=== PATIENT | male | born 1945 | race Caucasian/White ===

== ENCOUNTER 2018-03-25 09:20 | Emergency (ER) | payer OTHER, SELFPAY ==
[2018-03-25 09:22] VITALS: BP 158/79; PULSE 69; RESP 15; TEMP 36.2; O2SAT 95; BMI 29.5
--- NOTE | 2018-03-25 09:33 | CT_ITS ---
STUDY: CT ABDOMEN AND PELVIS WITHOUT CONTRAST REASON FOR EXAM: Male, 73 years old. Right flank pain with history of renal stones RADIATION DOSAGE (If Supplied By Facility): CTDIvol = ( 7.12 ) mGy, DLP = ( 325.70 ) mGycm TECHNIQUE: Transaxial images were obtained from the dome of the diaphragm to the symphysis pubis without oral contrast, and without intravenous contrast. Sagittal and coronal images were reconstructed. Individualized dose optimization techniques were used for this CT. COMPARISON: None. FINDINGS: The visualized lung bases are unremarkable. The visualized portions of the heart are within normal limits. Normal liver. Normal gallbladder and extrahepatic biliary system. Normal spleen. Normal pancreas. Normal bilateral adrenal glands. Both kidneys are prominent in size with either moderate bilateral hydronephrosis or parapelvic renal cysts. Ureters are NOT seen, however. There are calcifications of the left kidney measuring up to 5 mm. There appears to be a cystic lesion of the posterior right kidney on axial image 53 measuring 1.4 cm. Normal visualized stomach. Normal small intestine. Normal colon. There is non-visualization of the appendix. There is diffuse atherosclerotic calcification of the abdominal aorta, without a demonstrated aneurysm. Normal inferior vena cava. Normal retroperitoneum. There is diffuse increased attenuation of the central mesentery with mildly prominent lymph nodes and coarse, chunky calcifications in the central mesentery (image 80). A dominant tang masses NOT seen, however. Urinary bladder is not well-distended but there is circumferential diffuse thickening of the urinary bladder wall. Prostate is moderately enlarged. Normal abdominal wall. There are diffuse degenerative changes of the visualized lumbar spine. Mild arthrosis of the bilateral sacroiliac joints. CT/Abdomen/Pelvis without Cont IMPRESSION: 1. Bilateral hydronephrosis versus parapelvic renal cysts. No hydroureter. Renal ultrasound may assist in differentiating. 2. Left nephrolithiasis. 3. Circumferential wall thickening of the urinary bladder could represent cystitis, muscular hyperplasia or neoplasm. 4. Prostatomegaly. 5. Courtney mesentery with prominent mesenteric lymph nodes and scattered calcifications. Broad differential diagnosis with differential considerations including sequela of prior infection (peritonitis/pancreatitis/colitis/enteritis), sclerosing mesenteritis (favored), carcinoid tumor (atypical location), treated lymphoma. Unlikely to represent etiology of presenting symptoms. Electronically Signed: Pascual Harden MD at 10:13 EST , Service support ,
--- NOTE | 2018-03-25 09:35 | ED.VISSUMM ---
- ER Visit Summary Date of Service: 03/25/18 Chief Complaint: Right flank pain History of Present Illness: The patient is a 73 M presenting with right flank pain. Patient states this started approximately 1 hour ago. Pain is in the right flank and radiates to the right lower quadrant. Feels similar to his previous kidney stones. He has nausea with no vomiting. Denies fever. He has history of appendectomy. Denies other complaints. Physical Examination: Vitals are stable. Patient is afebrile. Alert no acute distress. HEENT exam is unremarkable. Neck is supple. Lungs are clear and equal bilaterally. Heart is regular rate and rhythm. Abdomen is soft mild right lower quadrant tenderness with no rebound or guarding Back: Right CVA tenderness Extremities are unremarkable. Skin is warm and dry. Remainder of exam is unremarkable. Emergency Department Course and Treatment: Patient given IV fluids, morphine, Zofran. CBC, chemistries unremarkable other than BUN 27. Urinalysis shows over [address] flank shows bilateral hydronephrosis versus parapelvic renal cysts. No hydroureter. Left nephrolithiasis. Circumferential wall thickening of the urinary bladder could represent cystitis, muscular hyperplasia or neoplasm. Prostatomegaly. Courtney mesentery with prominent mesenteric lymph nodes and scattered calcifications. Broad differential diagnosis with differential considerations including sequela of prior infection (peritonitis/pancreatitis/colitis/enteritis), sclerosing mesenteritis (favored), carcinoid tumor (atypical location), treated lymphoma. Unlikely to represent etiology of presenting symptoms. On further review, there are 1-2 calculi in the distal right ureter. The calculi measure up to 3 mm. Findings were discussed with the patient. He is currently pain-free. He will follow-up with urology and primary care physician Dr. Villatoro associate professor of economics for no doc. Advised return to ED for worsening complaints. Disposition: Discharge home Impression: Urolithiasis This note was generated with [employer] dictation software. It may contain incorrect words, spelling, and punctuation that were not noted in review of the chart prior to signing ED Disposition - Plan for ED Patient: Chief Complaint: Flank Pain Instructions: ED Stone Renal W Colic Prescriptions: Oxycodone HCl/Acetaminophen [Percocet 5/325] 1 tablet PO Q6H PRN PRN 3 Days #12 tablet PRN Reason: Pain Ondansetron [Zofran Odt] 4 mg PO Q8H PRN PRN #10 tablet PRN Reason: Nausea Referrals: Preston Villatoro III, MD [STAFF PHYSICIAN] - Atif Parks MD [STAFF PHYSICIAN] - An Fuller DO [STAFF PHYSICIAN] -
[2018-03-25] MEDS: Morphine 4 MG/ML Syringe IV ×2 (09:42→11:18)
[2018-03-25] MEDS: 0.9% Normal Saline 1,000 ML 250 ML IV (09:42)
[2018-03-25] MEDS: Ondansetron 4 MG/2 ML Vial IV (09:43)
[2018-03-25 09:45] LABS: Absolute Lymphocyte Count 1.28 X10^3/ul (0.83-4.51); Absolute Neutrophil Count 3.6 X10^3/uL (2.0-7.7); Basophil# 0.02 X10^3/uL; Basophil% 0.4 % (0-1); Eosinophil# 0.13 X10^3/uL; Eosinophils% 2.3 % (0-5); Hematocrit 41.2 % (40-54); Hemoglobin 14.4 g/dl (13.0-16.5); Lymphocyte # 1.28 X10^3/ul (4.0); Lymphocyte % 23.1 % (19-41); Mean Corpuscular Hgb 34.4 pg (27.0-32.0); Mean Corpuscular Volume 98.6 fL (80-94); Mean Platelet Vol. 9.2 fl (6.2-12.0); Monocyte# 0.53 X10^3/uL; Monocyte% 9.5 % (0-10); Neutrophil # 3.58 X10^3/uL (2.7-7.7); Neutrophil % 64.5 % (47-70); POSITIVE COUNT NO; POSITIVE DIFFERENTIAL NO; POSITIVE MORPHOLOGY NO; Platelet Count 252 K/mm3 (150-450); RBC Distribution Width SD 43.6 fl (35.1-43.9); Red Blood Count 4.18 M/mm3 (4.6-6.2); White Blood Count 5.6 K/mm3 (4.4-11.0)
[2018-03-25 09:53] LABS: Bacteria 0 SEEN /hpf (None Seen); Squamous Epithelial Cells - UA 0 SEEN /hpf (0-5); White Blood Cells 0 SEEN /hpf (0-5)
[2018-03-25 09:55] LABS: Color, Urine Yellow (Yellow); Glucose, Dipstick Normal (Normal); Ketone-Dipstick Negative (Negative); Leukocyte Esterase-Dipstick 25 /ul (Negative); Nitrite-Dipstick Negative (Negative); Occult Blood-Urine 250 /ul (Negative); Protein-Dipstick 30 mg/dl (Negative); Specific Gravity, Urine 1.025 (1.002-1.030); Urine Bilirubin Dipstick Negative (Negative); Urine Clarity Clear (Clear); Urine Urobilinogen Normal (Normal)
[2018-03-25 10:02] LABS: Red Blood Cells-Urine > 100 SEEN /hpf (0-5)
[2018-03-25 10:02] LABS: Anion Gap 7 (5-15); BUN 27 mg/dL (7-18); BUN/Creat Ratio 21.4 RATIO (10-20); Calcium,Total 8.5 mg/dL (8.5-10.1); Chloride 111 mmol/L (98-107); Creatinine, Serum 1.26 mg/dL (0.70-1.30); EST Glomerular Filtration Rate 60 mL/min (>60); Est Glom Filt Rate - Afr Amer 72 mL/min (>60); Estimated Creatinine Clearance 48.82 ml/min; Glucose 93 mg/dL (74-106); Sodium Level 144 mmol/L (136-145)
[2018-03-25 10:03] LABS: Mucous, Urine 1+ /hpf (<or=2+)
[2018-03-25 11:22] VITALS: BP 128/63; PULSE 89; RESP 22; O2SAT 99
--- NOTE | 2018-03-25 12:11 | ED.DEP ---
ED Disposition - Plan for ED Patient: Chief Complaint: Flank Pain Instructions: ED Stone Renal W Colic Referrals: Atif Parks MD [STAFF PHYSICIAN] - An Fuller DO [STAFF PHYSICIAN] - Preston Villatoro III, MD [STAFF PHYSICIAN] -
--- NOTE | 2018-03-25 12:17 | ED.DEP ---
ED Disposition - Plan for ED Patient: Chief Complaint: Flank Pain Instructions: ED Stone Renal W Colic Referrals: Preston Villatoro III, MD [STAFF PHYSICIAN] - Atif Parks MD [STAFF PHYSICIAN] - An Fuller DO [STAFF PHYSICIAN] -
--- NOTE | 2018-03-25 12:21 | ED.DEP ---
ED Disposition - Plan for ED Patient: Chief Complaint: Flank Pain Instructions: ED Stone Renal W Colic Prescriptions: Oxycodone HCl/Acetaminophen [Percocet 5/325] 1 tablet PO Q6H PRN PRN 3 Days #12 tablet PRN Reason: Pain Ondansetron [Zofran Odt] 4 mg PO Q8H PRN PRN #10 tablet PRN Reason: Nausea Referrals: Preston Villatoro III, MD [STAFF PHYSICIAN] - Atif Parks MD [STAFF PHYSICIAN] - An Fuller DO [STAFF PHYSICIAN] -
[2018-03-25 12:44] VITALS: BP 126/75; PULSE 71; RESP 18; O2SAT 99
== END 2018-03-25 12:45 | disposition home or self-care (01) ==
LOC: ED 10:31
PROVIDERS: Emergency Provider Emergency Medicine
DX: N20.2 Calculus of kidney with calculus of ureter (principal); N28.89 Other specified disorders of kidney and ureter; N40.0 Benign prostatic hyperplasia without lower urinary tract symptoms; Z87.442 Personal history of urinary calculi
CPT/HCPCS: 74176; 80048; 81001; 85025; 96361; 96374; 96375; 99283; J7030; A4216; J2405

== ENCOUNTER → 2018-05-21 10:36 | Outpatient (CLI) | payer OTHER, SELFPAY ==
--- NOTE | 2018-05-21 10:45 | RAD_ITS ---
STUDY: X-RAY - ABDOMEN/PELVIS REASON FOR EXAM: Male, 73 years old. Right-sided flank pain and history of stones TECHNIQUE: Single AP view of the abdomen / pelvis. COMPARISON: CT scan abdomen and pelvis March 25, 2018 FINDINGS: Normal visualized lung bases. There is an unremarkable bowel gas pattern. There is no demonstrated free abdominal air. There is a calcification in the left upper quadrant overlying the mid kidney measuring 4.9 mm. There is one measuring 2.7 mm. The right kidney is obscured. The liver and spleen are out of the [id number] on this study. Normal soft tissue structures. There are diffuse degenerative changes of the visualized lumbar spine. RAD/Abdomen Single View IMPRESSION: Left-sided renal stones. Right kidney is not well-visualized. There is no visualized stones in the right upper quadrant allowing for technique. There is still a stone in the right side of the pelvis which may represent persistent or residual ureteral stone. Recommend follow-up CT scan of the abdomen and pelvis renal colic protocol when appropriate. Electronically Signed: Mariann Maldonado MD at 2:16 EST Tel , Service support ,
== END ==
PROVIDERS: Referring Provider Urology; Visit Provider Urology
DX: R10.9 Unspecified abdominal pain (principal)
CPT/HCPCS: 74018

== ENCOUNTER 2018-05-30 07:24 | Day surgery (SDC) | payer OTHER, SELFPAY ==
--- NOTE | 2018-05-29 11:58 | HP.PCM_ITS ---
History and Physical Date of Admission: 05/30/18 I have pain in the flank. HPI: RADHA RIVERA is a 73 year-old male patient who is here for flank pain. The problem is on the right side. His pain started about 4 days. The pain is sharp. The intensity of his pain is rated as a 5. The pain is intermittent. The pain does radiate. Nothing seems to make the pain better. Nothing causes the pain to become worse. has pain comes and goes. CC/HPI: 73-year-old male who is been having flank pain often on on the right side since March. He had a CAT scan in March the demonstrated a 3 mm stone in the right ureter vesicle junction. Has never seen the stone or pass a stone. Still having pain in the right side often on pressure about five at a 10. Today we did a KUB which clearly demonstrate the stone still in the distal right ureter. ALLERGIES: None MEDICATIONS: None PSH: None NON- PSH: Appendectomy PMH: Other hydronephrosis Personal history of urinary calculi NON- PMH: None Immunizations: None FAMILY HISTORY: Heart Disease - Runs in Family SOCIAL HISTORY: Marital Status: Preferred Language: Luxembourgish; Race: White Current Smoking Status: Patient has never smoked. Tobacco Use Assessment Completed: Used Tobacco in last 30 days? Smoking cessation counseling was provided. Does not use smokeless tobacco. Social Drinker. Has not had a blood transfusion. REVIEW OF SYSTEMS: Constitutional: Patient denies fever, chills, weight loss, and weight gain. Eyes: Patient denies blurry vision, cataracts, and glaucoma. Ears, Nose, Mouth, Throat: Patient denies hearing loss, sinus infections, and sleep apnea. Cardiovascular: Patient denies chest pains, swollen ankles, irregular he artbeat, and pacemaker/defib. Respiratory: Patient denies shortness of breath, wheezing, oxygen, and cpap machine. Gastrointestinal: Patient denies abdominal pain, diarrhea, constipation, nausea, and vomiting. Genitourinary: Patient reports history of stones and get up at night to void. Patient denies leakage of urine, bedwetting, blood in the urine, weak stream/scanty, frequent uti's, urinary retention, difficulty starting stream, painful urination, and frequent urination. Musculoskeletal: Patient denies sore muscles, back pain, and gout. Integumentary/Skin: Patient denies rash, skin cancer, and chronic itching. Neurological: Patient denies falling/unsteady, paralysis, and stroke/tia. Hematologic/Lymphatic: Patient denies abnormal bleeding, blood transfusion, swollen lymph nodes, deep venous thrombosis, and pulmonary embolism. VITAL SIGNS: 05/21/2018 10:22 AM Weight 185 lb / 83.91 kg Height 185 in / 469.9 cm BP 128/66 mmHg BMI 3.8 kg/m? - BMI Counseling was provided. MULTI-SYSTEM PHYSICAL EXAMINATION: Constitutional: Well-nourished. No physical deformities. Normally developed. Good grooming. Neck: Neck symmetrical, not swollen. Normal tracheal position. Respiratory: No labored breathing, no use of accessory muscles. Cardiovascular: Normal temperature, normal extremity pulses, no swelling, no varicosities. Lymphatic: No enlargement of neck, axillae, groin. Skin: No paleness, no jaundice, no cyanosis. No lesion, no ulcer, no rash. Neurologic / Psychiatric: Oriented to time, oriented to place, oriented to person. No depression, no anxiety, no agitation. Gastrointestinal: No mass, no tenderness, no rigidity, non obese abdomen. Eyes: Normal conjunctivae. Normal eyelids. Ears, Nose, Mouth, and Throat: Left ear no scars, no lesions, no masses. Right ear no scars, no lesions, no masses. Nose no scars, no lesions, no masses. Normal hearing. Normal lips. Musculoskeletal: Normal gait and station of head and neck. PAST DATA REVIEWED: Source Of History: Patient Lab Test Review: CBC Records Review: Previous Doctor Records, Previous Patient Records X-Ray Review: KUB: Reviewed Films. Reviewed Report. Discussed With Patient. C.T. Abdomen/Pelvis: Reviewed Films. Reviewed Report. Discussed With Patient. PROCEDURES: Urinalysis - 73585 Dipstick Dipstick Cont'd Specimen: Voided Blood: Neg Appearance: Clear pH: 5.0 Color: Yellow Protein: Neg Glucose: Normal Urobilinogen: Neg Bilirubin: Neg Nitrites: Neg Ketones: Neg Leukocyte Esterase: Neg ASSESSMENT: ICD-10 Details 1 : Calculus of ureter - N20.1 Right 2 Other hydronephrosis - N13.39 3 Generalized abdominal pain - R10.84 PLAN: Schedule Procedure: Unspecified Date - Cysto Uretero Lithotripsy - 68746, right Document Letter(s): Created for Patient: Clinical Summary The risks, benefits, and some of the possible complications of the proposed procedure were discussed with the patient at length and in detail including the possibility of bladder injury, urethral injury, ureteral injury, ureteral biopsy, ureteral lesion resection, open nephrectomy, a bladder biopsy, retrograde pyelograms, resection of a bladder lesion, dilation of the urethra, a postoperative catheter, placement of a ureteral stent, and others. The possible need for further surgical procedures was discussed with the patient. The possible need for postoperative treatments including further surgical procedures, chemotherapy, immunotherapy, radiation therapy, and others was discussed with the patient. The possibility that this operative procedure might not to cure the underlying disease, that micrometastatic disease might already be present, and that this underlying disease might result in the of the patient was discussed. The general risks of the operative procedure and the perioperative period were discussed with the patient at length and in detail including swelling, pain, nausea, vomiting, fever, chills, infection, wound infection, sepsis, renal failure, internal or external bleeding, intraoperative bowel, organ or vascular injuries, postoperative formation of scar tissue, the need for blood transfusion s, deep venous thrombosis or blood clots, pulmonary embolus, pneumonia, respiratory failure, heart attack, stroke, he and others. All of the patient's questions were answered and he voiced an understanding of these risks, benefits and possible complications. The patient gave fully informed consent to proceed with the procedure. Notes: 73-year-old male with a right ureteral calculi about 3 mm in size but is failed conservative management stone is still visible KUB still the same exact locations CAT scan prior. At this point recommend surgical intervention to proceed with ureteroscopy balloon dilation of the ureter laser extraction of a fragment placement of the possible stent. We may need to take care of the other stones later on with shockwave lithotripsy here is agreeable with this plan will set him up for ureteroscopy laser the right kidney stones at [facility].
[2018-05-30 08:19] VITALS: BP 139/91; PULSE 90; RESP 18; TEMP 36.9; O2SAT 100; BMI 29.1
--- NOTE | 2018-05-30 08:48 | DCINST_ITS ---
Discharge Diet: Light diet - advance as tolerated Discharge Activity: Return to Normal Activity Suture Line Care: Avoid Pulling/Pushing, Avoid Pinching/Bending Instructions: Treating Kidney Stones: Ureteroscopic Stone Removal, Ureteral Stents Allergies/Adverse Reactions: Allergies No Known Allergies Allergy (Verified 05/24/18 08:20) Medications to take at Discharge Ondansetron [Zofran Odt] 4 mg PO Q8H PRN PRN #10 tablet 03/25/18 Naproxen Sodium [Aleve] 220 mg PO Q12H PRN PRN 05/24/18 Oxycodone HCl/Acetaminophen [Percocet 5/325] 1 tablet PO Q4H PRN PRN 05/24/18 Primary Care Physician: Care Physician,No Primary [Primary Care Provider] - Test Results: Test results from this visit will be discussed in further detail at your follow- up appointment, if applicable. Please Follow Up With: Atif Parks MD When: please call to make an appointment.
--- NOTE | 2018-05-30 09:51 | OP.PCM_ITS ---
Report of Operation Date of Procedure: 05/30/18 Pre-Operative Diagnosis: Right ureteral calculi and right renal calculi Post-Operative Diagnosis: The same Surgery/Procedure Performed:: Cystoscopy, balloon dilation of the right ureter, right retrograde pyelogram, interpretation of fluoroscopic images, manipulation of stone in the kidney, ureteroscopy and laser lithotripsy of stone, and right stent placement. Description of Surgical Findings:: 73-year-old male who I saw in the office for a kidney stone he had both a stone in the distal ureter and also stone in the right kidney he not been able to pass the stone so today we will perform ureteroscopy and laser lithotripsy of the stones and placement of the stent. 73-year-old male taken back to the operating room after smooth induction of general anesthesia he was placed supine on the table, the penis and testicles are prepped and draped in usual sterile fashion, I then used a 21 Beninese rigid cystourethroscope with a 30 degree lens, after well-lubricated and the scope I went into the urethra went all the way into the bladder and once inside the bladder inspected the prostate he had a mildly enlarged prostate mild median lobe significant BPH with bilateral hypertrophy no trabeculation within the bladder some mild thickening of the bladder but no tumors or stones seen within the bladder, I then identified the right ureteral orifice and cannulated this with a Glidewire. It was a 0.035 Glidewire I then used a 4 Beninese 10 cm balloon dilator and advanced it over the wire to the distal ureter I then balloon dilated the distal ureter with 1 cc of contrast under fluoroscopic images we were visualizing this dilation after the dilation was completed then I backed out the balloon dilator over the wire left is 0.[address] and drain the bladder and then over the wire I went in with the flexible ureteroscope it was a 8 Beninese flexible Olympus ureteroscope. Got into the distal ureter quite easily and then manipulated up through the ureter up to the kidney then pulled out the wire performed a retrograde pyelogram could see the contrast filling the kidney and identified the stone in the upper pole of the kidney no other stones were seen after performed a retrograde pyelogram and analyzed in the images under fluoroscopy I then went up to the kidney and the ureter ureteroscopy identify the stone fragment in the upper pole of the kidney, I then manipulated the stone into another calyx in order to laser the stone this took the tip of the laser fiber to manipulate the stone but I was able to move the stone and once the stone was moved then I proceeded with the laser lithotripsy. I used a 200 ?m laser fiber settings were initially 0.6 Hz and 6.6 J and proceeded with lasering the stone stone was a difficult location to get to because of the severe angulation of the stone behind a calyx I had to place the patient in severe Trendelenburg and then I increased the power to 2.0 J and 6 Hz and with this then I was able to laser the stone into the significant small fragments. After lasering the stone completely into tiny fragments then I worked my way down the ureter. I then worked my way down the ureter with the ureteroscope left the wire in place there is no other fragments along the course of the ureter no injury or damage or perforation of the ureter. Work my way out of the bladder with the ureteroscope left the wire in place I then backloaded the 21 Beninese rigid ureteroscope over the 0.035 Glidewire and I advanced a 4.5 Beninese stent by 26 cm stent over the wire. Once the stent was in good position I pulled on the wire I left the string of the stent for easy extraction patient's bladder was drained patient's anesthetic was reversed and is taken back to the PACU stable condition. Type of Anesthesia:: General Drains: 4.5 fr x 26 cm stent - Admit VTE Documentation VTE Present on Admission: No VTE Mechan Device Prophylaxis: SCD's
[2018-05-30 09:55] VITALS: BP 139/91; BP 148/85; PULSE 87; RESP 16; TEMP 36.3; O2SAT 95
[2018-05-30 10:00] VITALS: BP 139/91; BP 143/80; PULSE 78; RESP 16; O2SAT 97
[2018-05-30 10:15] VITALS: BP 139/91; BP 140/88; PULSE 78; RESP 16; O2SAT 96
[2018-05-30 10:30] VITALS: BP 139/91; BP 141/86; PULSE 78; RESP 16; TEMP 36.2; O2SAT 97
[2018-05-30] MEDS: Ketorolac 15 MG/ML Vial IV (10:36)
[2018-05-30 11:23] VITALS: BP 139/91; BP 152/90; PULSE 78; RESP 16; TEMP 36.8; O2SAT 98
== END 2018-05-30 11:26 | disposition home or self-care (01) ==
LOC: SDC 07:25 → AC 07:26
PROVIDERS: Referring Provider Urology; Visit Provider Urology
PROC: 0TJ98ZZ Inspection of Ureter, Via Natural or Artificial Opening Endoscopic (ICD-10-PCS; CPT 52352; principal; 2018-05-30 09:25)
DX: N13.2 Hydronephrosis with renal and ureteral calculous obstruction (principal); N40.0 Benign prostatic hyperplasia without lower urinary tract symptoms
CPT/HCPCS: 00918; 52356; 76000; J7120; C1769; J2405

== ENCOUNTER → 2018-06-04 08:48 | Outpatient (CLI) | payer OTHER, SELFPAY ==
[2018-05-30 08:19] VITALS: BMI 29.1
--- NOTE | 2018-06-04 08:53 | RAD_ITS ---
STUDY: X-RAY - ABDOMEN/PELVIS REASON FOR EXAM: Male, 73 years old. Right-sided kidney stone. TECHNIQUE: Single AP view of the abdomen / pelvis. COMPARISON: 05/21/2018. FINDINGS: There is a right ureteral stent in typical location. No definite right renal or ureteral stones. A 6 mm stone is seen in the mid left kidney, stable. There is an unremarkable bowel gas pattern. There is no demonstrated free abdominal air. The visualized liver, spleen and kidneys are grossly normal in size and morphology. Normal soft tissue structures. Normal visualized osseous structures. RAD/Abdomen Single View IMPRESSION: Right ureteral stent in typical location. 6 mm stone of the mid left kidney. Electronically Signed: Vik Morgan MD at 19:51 EST , Service support ,
== END ==
PROVIDERS: Referring Provider Nurse Practitioner Adult Health; Visit Provider Nurse Practitioner Adult Health
DX: N20.0 Calculus of kidney (principal)
CPT/HCPCS: 74018

== ENCOUNTER 2018-08-20 07:30 | Outpatient (RCR) | payer OTHER, SELFPAY ==
--- NOTE | 2018-06-25 07:57 | HP.PTEVAL ---
Patient's Visit Information RADHA RIVERA is a 73 year old M referred to Physical Therapy by HUBER CRUM with a diagnosis of Lumbar with Radiculopathy. Date of Evaluation: 06/25/18 Physical Therapist: Chika Kearns DPT - Visit Plan Frequency: 2x /Week Duration: 4 Weeks Plan: Education on body mechanics. Focus on core s/s, balance and LE strength- modality of US - Subjective Findings: This started in early May but recently just got bad. 2017 went to [place] for a few days had problems getting out of bed and was miserable until about 9:00 am then he was okay. Then he went to [facility] and did stretches and it helped. Went to walk in [facility] about a 2 weeks- they took x-rays showed a little bit of OA. Gave him a dose pack and then take PT then go from there. Does not feel the dose pack is really helping. 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 Monday he could barely walk. Patient reports it starts in the hips and radiates down to the ankle. His ankles/feet feel weak and he has fallen a few times when on uneven surfaces. Pain does not keep him from sleeping- has been sleeping on his back. He is worse in the AM. Describes the pain as sharp and shooting in the thighs but the calf feels tight. N/T all the way to the toes. Worst: 9/10 Best: 0/10. Agg: getting up in the AM, getting up/down. Eases: pain medication, sitting and laying down. Sometimes it comes and goes. Is not seeing a chiropractor. Does have an apt to see Dr. Tyler on July 26. PMHx: torn meniscus, Meds: none - Objective Posture: FH, RS, increased kyphosis- can correct but does not mainta. Gait: posterior pelvic tilt, decreased step length bilateral with ER at the hip, poor heel/toe pattern. ROM: WFL in all planes but reports pain in the left lumbar Hip/Knee/Ankle: WFL. HR/TR: Heel raise- decreased by 50% and requires UE A. TR: unable. SLS: WS but unable to SLS without UE A from wall. Flex: HS: severe, Gastroc: moderate. Strength: Core: poor, Hip: 4/5 throughout, Knee: 5/5, Ankle: 2+/5 throughout DF, 4/5 throughout PF/INV/EVER. Sensation: WNL. Reflex: patella: hyper Achilles: diminished. Special Test: HERO: negative, DKTC: negative, ROMY: negative. Dural signs: positive bilateral - Goals Goal 1:: Patient will be I with HEP Goal Time Frame: 4-6 Weeks Goal 2:: Patient will maintain proper posture t/o tx session to demo increased core s/s Goal Time Frame: 4-6 Weeks Goal 3:: Patient will report centralization of s/s Goal Time Frame: 4-6 Weeks Goal 4:: Patient will SLS for 5 seconds each prior to LOB Goal Time Frame: 4-6 Weeks - Rehabilitation Potential Physical Therapy Diagnosis: Patient presents with hypomobility- he has decreased ROM, strength and muscular endurance leading to poor posture and increased pain with ADL's. Rehabilitation Potential: Fair - Anticipated Interventions Patient/Client Instruction: Educate patient on: Benefits of Fitness Program Therapeutic Exercise to Include: Strength training, Endurance training, Balance training, Body mechanics, Postural training, Flexibilty training, Gait and locomotor training, Dynamic Lumbar Stabilization For the Purpose of:: To improve muscle performance and motor function TENS: Yes Cryotherapy (ice pack, ice massage): Yes Thermo therapy (hot pack): Yes Ultrasound (thermal/non thermal): Yes For the Purpose of:: To decrease pain Thank you for the opportunity to evaluate your patient. For Medicare and Medicare HMO plans, please review the plan of care and approve it. It will need to be FAXED BACK to us at [phone] for Medicare purposes. For Medicare only, by signing this I certify the plan of care. Please let me know if there are questions or concerns regarding this plan of care. Physician Signature: Date:
--- NOTE | 2018-07-24 08:00 | HP.PTREVAL ---
HUBER CRUM, It has been my pleasure to treat RADHA RIVERA over the last 9 visits for Lumbar with Radiculopathy. Please see the progress note below for an update on the physical therapy plan of care! Subjective: Patient reports that he is better- the right has cleared up pretty well and the left only had discomfort to the knee. Still has challenges lifting and turning with heavy objects. Plans to reschedule with Dr. Tyler or may see someone else. Has never really had back problems. The right leg is 90% better and the left leg is 50% better. Objective/Function: Posture: FH, RS, increased kyphosis- can correct but does not maintain. Gait: improving with less posterior pelvic tilt, decreased step length bilateral with ER at the hip, poor heel/toe pattern. ROM: WFL in all planes with no pain during testing Hip/Knee/Ankle: WFL. HR/TR: Heel raise- WNL TR: left decreased by 25% compared to right. SLS: Left: 5 seconds Right: 4 seconds Flex: HS: moderate, Gastroc: moderate. Strength: Core:fair, Hip: 4/5 throughout, Knee: 5/5, Ankle: 3/5 throughout DF, 4/5 throughout PF/INV/EVER. Sensation: WNL. Reflex: patella: hyper Achilles: diminished. Special Test: HERO: negative, DKTC: negative, ROMY: negative. Dural signs: positive bilateral Plan Plan: Continue 2x a week for 4 weeks with continued progression towards goals Goals Goal 1:: Patient will be I with HEP Goal Time Frame: 4-6 Weeks Goal Progress: Progressing Goal 2:: Patient will maintain proper posture t/o tx session to demo increased core s/s Goal Time Frame: 4-6 Weeks Goal Progress: Progressing Goal 3:: Patient will report centralization of s/s Goal Time Frame: 4-6 Weeks Goal Progress: Progressing Goal 4:: Patient will SLS for 5 seconds each prior to LOB Goal Time Frame: 4-6 Weeks Goal Progress: Progressing Anticipated Interventions Patient/Client Instruction: Educate patient on: Benefits of Fitness Program Therapeutic Exercise to Include: Strength training, Endurance training, Balance training, Body mechanics, Postural training, Flexibilty training, Gait and locomotor training, Dynamic Lumbar Stabilization For the Purpose of:: To improve muscle performance and motor function TENS: Yes Cryotherapy (ice pack, ice massage): Yes Thermo therapy (hot pack): Yes Ultrasound (thermal/non thermal): Yes For the Purpose of:: To decrease pain Please do not hesitate to contact me at [phone] by phone or if you have questions or concerns regarding this new plan of care! Sincerely, MELE CarmonaT
--- NOTE | 2018-08-20 07:54 | HP.PTDCSUM_ITS ---
HP - PT D/C Summary It has been my pleasure to treat RADHA RIVERA under orders from HUBER CRUM, for the diagnosis of Lumbar with Radiculopathy for a total of 17 visit(s). Discharge Date: Please see the following information for a summary of their discharge status. - Subjective Subjective: Patient reports that if he hits the right spot his leg tingles and burning sensation. Feels like its getting better- he can carry #40 now and the strength is better. It does not burn as often- fires up at the end of the day. - Pain Back Pain Intensity (Out of 10): 0 Buttock, Hamstrings Pain Intensity (Out of 10): 1 - Overall Improvement % Improvement: 80 - Objective Objective/Function: Posture: good in hard back chair. Gait: improving with less posterior pelvic tilt, decreased step length bilateral with ER at the hip, poor heel/toe pattern. ROM: WFL in all planes with no pain during testing Hip/Knee/Ankle: WFL. HR/TR: wfl SLS: Left: 10 seconds Right: 8 seconds Flex: HS: moderate, Gastroc: moderate. Strength: Core:fair plus, Hip: 4+/5 throughout, Knee: 5/5, Ankle: 4/5 throughout DF, 4+/5 throughout PF/INV/EVER. Sensation: WNL. Reflex: patella: hyper Achilles: diminished. Special Test: HERO: negative, DKTC: negative, ROMY: negative. Dural signs: positive bilateral - Goals Goal 1:: Patient will be I with [facility] Goal Progress: Goal Met Goal 2:: Patient will maintain proper posture t/o tx session to demo increased core s/s Goal Progress: Goal Met Goal 3:: Patient will report centralization of s/s Goal Progress: Progressing Goal 4:: Patient will SLS for 5 seconds each prior to LOB Goal Progress: Goal Met - Plan Plan: Discharge to [facility] with health and wellness - D/C Information If there are questions or concerns regarding this patient's physical therapy, please feel free to call me at [phone]. Thank you for the referral of this patient. Sincerely, Chika Kearns DPT
== END 2018-08-20 19:00 | disposition home or self-care (01) ==
LOC: PT 07:30
DX: M54.5 Low back pain (principal); M54.16 Radiculopathy, lumbar region
CPT/HCPCS: 97110; 97162; 97164

== ENCOUNTER → 2018-10-31 | Outpatient (CLI) | payer OTHER, SELFPAY ==
[2018-10-31 15:45] LABS: Absolute Lymphocyte Count 1.07 X10^3/uL (0.83-4.51); Absolute Neutrophil Count 4.2 X10^3/uL (2.0-7.7); Basophil# 0.04 X10^3/uL; Basophil% 0.7 % (0-1); Eosinophil# 0.12 X10^3/uL; Hematocrit 42.8 % (40-54); Hemoglobin 14.7 g/dL (13.0-16.5); Lymphocyte # 1.07 X10^3/ul (4.0); Lymphocyte % 18.2 % (19-41); Mean Corp Hgb Conc 34.3 g/dL (32-36); Mean Corpuscular Hgb 34.4 pg (27.0-32.0); Mean Corpuscular Volume 100.2 fL (80-94); Monocyte# 0.47 X10^3/uL; NRBC Flagged by Analyzer 0 % (0-5); Neutrophil # 4.16 X10^3/uL (2.7-7.7); Neutrophil % 70.9 % (47-70); Platelet Count 301 K/mm3 (150-450); RBC Distribution Width CV 12.2 % (11.6-14.6); RBC Distribution Width SD 45.1 fl (35.1-43.9); Red Blood Count 4.27 M/mm3 (4.6-6.2); White Blood Count 5.9 K/mm3 (4.4-11.0)
[2018-10-31 16:00] LABS: ALB/GLOB Ratio 1.2 RATIO (0.9-2.4); AST(SGOT) 8 U/L (15-37); Alanine Aminotransfer ALT/SGPT 15 U/L (16-61); Albumin, Serum 4.1 g/dL (3.2-5.0); Alkaline Phosphatase 67 U/L (45-117); Anion Gap 5 (5-15); BUN 19 mg/dL (7-18); Calcium,Total 8.9 mg/dL (8.5-10.1); Chloride 109 mmol/L (98-107); Cholesterol 297 mg/dL (200); EST Glomerular Filtration Rate 78 mL/min (>60); Est Glom Filt Rate - Afr Amer 94 mL/min (>60); Globulin 3.3 g/dL (2.2-4.2); Glucose 87 mg/dL (74-106); High Density Lipoprotein 53 mg/dL; PSA,Total - Annual Screen 2.51 ng/mL (0.00-4.00); Protein, Total 7.4 g/dL (6.4-8.2); Sodium Level 140 mmol/L (136-145); Triglycerides 63 mg/dL; Very Low Density Lipoprotein 13 mg/dL (5-40)
== END | disposition home or self-care (01) ==
LOC: BFHLAB 11:50
PROVIDERS: Visit Provider Family Medicine
DX: E78.5 Hyperlipidemia, unspecified (principal); Z82.49 Family history of ischemic heart disease and other diseases of the circulatory system; Z12.5 Encounter for screening for malignant neoplasm of prostate; R53.83 Other fatigue
CPT/HCPCS: 36415; 80053; 80061; 84153; 85025; G0103

== ENCOUNTER → 2019-02-19 12:13 | Outpatient (CLI) | payer SELFPAY ==
--- NOTE | 2019-02-19 12:18 | CT_ITS ---
STUDY: CARDIAC CALCIUM SCORING - CT CHEST REASON FOR EXAM: Male, 73 years old. Hyperlipidemia. RADIATION DOSAGE (If Supplied By Facility): CTDIvol = ( 12.19 ) mGy, DLP = ( 195.04 ) mGycm TECHNIQUE: Axial non-enhanced images were acquired through the heart for the sole purpose of measuring coronary artery calcium. Individualized dose optimization techniques were used for this CT. COMPARISON: None. FINDINGS: Please see the patient's medical record for a personalized calcium score. There is a 4 mm nodule in the right lower lobe. The visualized soft tissues are within normal limits. CT/Limited Chest CT w/CCTA IMPRESSION: Please see the patient's medical record for a person of this calcium score. 4 mm nodule in the right lower lobe. Dedicated chest CT is recommended. Please go to: [email or web address] , for a description of the calculator. Electronically Signed: Guero Vela, at 13:46 EST Tel , Service support ,
[2019-02-19 12:26] VITALS: BP 144/68; PULSE 85; RESP 18; O2SAT 97; BMI 27.1
[2019-02-19 12:43] VITALS: BP 128/78; PULSE 85
[2019-02-19] MEDS: 0.9% Saline Lock 10 ML Syringe IV (12:43)
[2019-02-19] MEDS: Metoprolol Tartrate 5 MG/5 ML Vial IV (12:43)
[2019-02-19 12:47] VITALS: BP 150/67; PULSE 68; RESP 18; O2SAT 97
[2019-02-19 13:05] VITALS: BP 144/88; PULSE 74; RESP 18; O2SAT 97
[2019-02-19 13:14] VITALS: PULSE 70; RESP 18; O2SAT 94
--- NOTE | 2019-02-19 21:30 | CA.SCORE ---
Calcium Scoring Date of Study:: 02/19/19 Coronary Calcium Scoring: High-resolution Computed Tomographic imaging of the chest was performed on 02/19/19 with particular attention paid to the coronary arteries. Images from the examination were analyzed for the presence and extent of coronary artery calcification , using coronary calcium quantification software. The patient tolerated the procedure well and there were no complications. The results of the coronary calcification analysis are provided below. - Findings Left Main (LM): 1,055 Left Anterior Descending (LAD): 150 Left Circumflex (LCX): 966 Right Coronary Artery (RCA): 300 Total Agatston Score: 2,471 Percentile Ranking: Percentile ranking: Greater than 90% of patients of the same gender/similar age had the same or lower scores Calcium Scoring Interpretation: 0 No identifiable atherosclerotic plaque. Very low cardiovascular disease risk. <5% chance of presence coronary artery disease A Negative Examination 1-10 Minimal Plaque burden. Significant coronary artery disease very unlikely. 11-100 Mild plaque burden. Likely mild or minimal coronary atherosclerosis. 101-400 Moderate plaque burden Moderate non-obstructive coronary artery disease highly likely. Over 400 Extensive plaque burden. High likelihood of at least one significant coronary stenosis (>50% diameter) Calcium Score: >400 High likelihood of at least one significant coronary stenosis - Consider further cardiovascular evaluation as deemed appropriate.
== END ==
PROVIDERS: Family Provider Family Medicine; PCP Family Medicine; Referring Provider Family Medicine; Visit Provider Family Medicine
DX: E78.5 Hyperlipidemia, unspecified (principal); I10 Essential (primary) hypertension; Z82.49 Family history of ischemic heart disease and other diseases of the circulatory system
CPT/HCPCS: 75571; 76380; A4216

== ENCOUNTER → 2019-03-09 10:47 | Outpatient (CLI) | payer OTHER, SELFPAY ==
[2019-02-19 12:26] VITALS: BMI 27.1
--- NOTE | 2019-03-09 10:50 | CT_ITS ---
STUDY: CT CHEST WITHOUT CONTRAST REASON FOR EXAM: Male, 73 years old. Nodule RADIATION DOSAGE (If Supplied By Facility): CTDIvol = ( 14.73 ) mGy, DLP = ( 526.30 ) mGycm TECHNIQUE: Transaxial imaging was performed without the administration of intravenous contrast material. Multiplanar coronal and sagittal images were reformatted. Individualized dose optimization techniques were used for this CT. COMPARISON: CT scan March 25, [address] scan abdomen and pelvis FINDINGS: Within the right lower lobe is a 3.9 mm well-circumscribed nodule that is pleural-based in comparison to represent punctate calcification. There is no visualized focal consolidation pleural effusion pulmonary edema or pneumothorax. There is no demonstrated pleural abnormality. Normal heart and pericardium. There is mild cardiac enlargement. There are coronary calcifications. There are nonspecific subcentimeter mediastinal lymph nodes. Normal mediastinum. Normal hilar regions. Normal unenhanced pulmonary arteries. The aorta is partially calcified. There are multi-level degenerative changes of the thoracic spine. There is a partial visualization of a cystic structure in the right renal pelvis measuring 2.5 x 3.0 cm. There is a punctate stone in the upper pole of the left kidney with there was partially seen on prior study. There is partial visualization of the mesenteric edema that was seen on the prior study March 25, 2018. CT/Chest without Contrast IMPRESSION: Coronary artery disease. Mild cardiomegaly 4 mm nodule right lower lobe recommend follow-up CT scan chest in 6 month to ensure stability. Recommend consideration for a follow-up CT scan of the abdomen and pelvis to follow up the peripelvic cyst and/or hydronephrosis in the kidneys. Punctate stone left kidney Partial visualization of mesenteric edema as seen on prior study. Electronically Signed: Mariann Maldonado MD at 14:54 EST Tel , Service support ,
== END ==
PROVIDERS: Family Provider Family Medicine; PCP Family Medicine; Referring Provider Family Medicine; Visit Provider Family Medicine
DX: R91.1 Solitary pulmonary nodule (principal)
CPT/HCPCS: 71250

== ENCOUNTER 2019-03-14 08:40 | Day surgery (SDC) | payer OTHER, MEDICARE, SELFPAY ==
[2019-03-11 13:11] VITALS: BMI 27.1
[2019-03-11 15:44] LABS: Absolute Lymphocyte Count 0.93 X10^3/uL (0.83-4.51); Basophil# 0.02 X10^3/uL; Basophil% 0.5 % (0-1); Eosinophil# 0.09 X10^3/uL; Eosinophils% 2.1 % (0-5); Hematocrit 42.6 % (40-54); Lymphocyte # 0.93 X10^3/ul (4.0); Lymphocyte % 21.3 % (19-41); Mean Corp Hgb Conc 35.2 g/dL (32-36); Mean Corpuscular Hgb 34.6 pg (27.0-32.0); Mean Corpuscular Volume 98.4 fL (80-94); Mean Platelet Vol. 9.5 fl (6.2-12.0); Monocyte# 0.31 X10^3/uL; Monocyte% 7.1 % (0-10); NRBC Flagged by Analyzer 0 % (0-5); Neutrophil # 3.01 X10^3/uL (2.7-7.7); Neutrophil % 68.8 % (47-70); Platelet Count 260 K/mm3 (150-450); RBC Distribution Width CV 11.4 % (11.6-14.6); RBC Distribution Width SD 41.4 fl (35.1-43.9); Red Blood Count 4.33 M/mm3 (4.6-6.2); White Blood Count 4.4 K/mm3 (4.4-11.0)
[2019-03-11 15:53] LABS: Partial Thromboplast Time 29.1 Seconds (24.1-36.2); Prothrombin Time (Protime)PT. 13.1 SECONDS (11.7-14.9)
[2019-03-11 16:14] LABS: Anion Gap 7 (5-15); BUN 21 mg/dL (7-18); BUN/Creat Ratio 21.8 RATIO (10-20); Calcium,Total 9.2 mg/dL (8.5-10.1); Chloride 107 mmol/L (98-107); Creatinine, Serum 0.96 mg/dL (0.70-1.30); EST Glomerular Filtration Rate 81 mL/min (>60); Est Glom Filt Rate - Afr Amer 98 mL/min (>60); Glucose 91 mg/dL (74-106); Sodium Level 140 mmol/L (136-145)
[2019-03-13 08:35] VITALS: BMI 27.1
[2019-03-14] VITALS (21 sets, daily range): BP systolic 121–153; BP diastolic 56–96; PULSE 71–102; RESP 12–28; TEMP 36.8–36.9; O2SAT 95–99; BMI 27.6
--- NOTE | 2019-03-14 08:42 | ECHOD_ITS ---
Reason For Study: [facility] CT calcium score test Procedure This was a 2D Doppler, Color Flow transthoracic echocardiogram. Exam performed in department. Left Ventricle Normal LV size. The estimated ejection fraction is 55 %. No evidence for diastolic dysfunction. No regional wall motion abnormalities noted. Right Ventricle Normal RV size. Normal systolic function. Atria Normal left atrium. Normal right atrium. No doppler evidence for ASD. Mitral Valve There is no mitral valve stenosis. Trivial mitral valve insufficiency. Tricuspid Valve There is no tricuspid stenosis. Unable to estimate RV systolic pressure due to insufficient tricuspid regurgitant envelope. Trivial tricuspid valve insufficiency. Aortic Valve Trisinus/trileaflet aortic valve. There is no aortic stenosis. No aortic valve insufficiency. Pulmonic Valve There is no pulmonic valvular stenosis. No pulmonic valve insufficiency. Great Vessels Normal aortic root. Pericardium/Pleural No pericardial effusion. MMode/2D Measurements & Calculations LVIDd: 5.7 cm IVSd: 0.98 cm Ao root diam: 3.5 cm LVIDs: 4.1 cm LVPWd: 1.2 cm RVDd: 3.3 cm FS: 27.1 % LAV(MOD-bp): 76.8 ml LA A4 area: 23.1 cm2 LA dimension(2D): 3.7 cm LAV(MOD-bp) Indexed: 40.4 ml/m2 LAV(MOD-sp2): 68.2 ml LAV(MOD-sp4): 79.0 ml RA A4 area: 17.0 cm2 Time Measurements MV dec time: 0.19 sec Doppler Measurements & Calculations MV E max roberto: 52.4 cm/sec Lat Peak E' Roberto: 7.7 cm/sec Med Peak E' Roberto: 6.5 cm/sec MV A max roberto: 85.5 cm/sec E/E' lat: 6.8 E/E' med: 8.0 MV E/A: 0.61 Ao V2 max: 116.4 cm/sec LV V1 max: 78.1 cm/sec PA V2 max: 126.9 cm/sec Ao max P.4 mmHg LV V1 max P.4 mmHg TR max roberto: 292.6 cm/sec TR max P.2 mmHg Interpretation Summary The estimated ejection fraction is 55 %. No evidence for diastolic dysfunction. Trivial mitral valve insufficiency. Ordering Physician: Justin Marcano Referring Physician: An Fuller Performed By: Gina Alston, ANABELL, RVT
--- NOTE | 2019-03-14 12:30 | EKG12_ITS ---
Test Reason : AM EKG Blood Pressure : / mmHG Vent. Rate : 083 BPM Atrial Rate : 083 BPM P-R Int : 148 ms QRS Dur : 082 ms QT Int : 388 ms P-R-T Axes : 040 002 016 degrees QTc Int : 455 ms Sinus rhythm with Premature atrial complexes Low voltage QRS (Limb Leads) Borderline ECG Confirmed by DARIO TY, ENDY ([id number]), field map editor LAYO OZUNA ([id number]) on 03/20/2019 1:14:23 PM Referred By: Justin Marcano Confirmed By:ENDY BISHOP MD
[2019-03-14] MEDS: 0.9% Normal Saline 1,000 ML 80 ML IV (12:51)
--- NOTE | 2019-03-14 15:43 | CASEMGMT ---
RN CM Note. Brilinta savings card given to patient and explained. Questions answered. No dc needs identified @ this time. Alexis CIDN RN ACM
--- NOTE | 2019-03-14 18:40 | CL.I_ITS ---
Patient Name: RADHA RIVERA Study Date: 03/14/2019 Performing: Wood Marcano MD Ht: 67 inches 170 cm : 1945 Wt: 172.2 lbs 78 kg Age: 73 Gender: male BSA: 1.89 PROCEDURE(S) PERFORMED MH80-VAF/COR/LV IS71-EIV W OR WO PTCA, SINGLE CORONARY ARTERY CLINICAL PROFILE AND CO-MORBIDITIES Indications: Significantly abnormal Ca score Heart Failure: None Stress/Imaging Stress/Image Study Performed: No CAD Presentations: No Sxs, no angina. CONCLUSIONS CAD as described. Preserved EF. No significant or MR. Successful PCI of ostial LCx with MANASA. RECOMMENDATIONS ASA Indefinitley Brilinta for at least 12 months Pt. should return for PCI of LAD in 2-4 weeks DESCRIPTION OF PROCEDURE The patient arrived to the procedure lab. The risks and benefits of the procedure as well as a full d escription of our services here and lack of surgical backup were fully explained to the patient and/o r their significant other prior to the catheterization. The Timeout was completed, verifying the derrick ect patient and procedure. The patient's procedural site was prepped and draped in the usual fashion. Local anesthetic was given subcutaneously to right radial region with Lidocaine 2%. Using a modified Seldinger technique, arterial access was obtained via the right radial artery, a 6Fr sheath was inse rted.. Left Coronary Artery selective angiography was performed in multiple views using a 5 Fr. JL3. 5 catheter. Left Ventriculography was performed in SINGER projection using a 5 Fr. Pigtail catheter. LV to AO pullback pressures were then recorded. Right Coronary Artery selective angiography was then per formed in multiple views using a 5 Fr. JR 4 catheterThe images were reviewed and options discussed. A decision was then made to proceed with an Intervention, IVUS or other adjunct procedure. cordis xb 3 Guide catheter was inserted and engaged into the LCA. bmw Guide wire was advanced to the Circumflex. emerge 3.00 x 15 Balloon catheter was advanced across lesion in the circumflex, ostia l. PTCA balloon inflated at 8 atms for 16 secs. PTCA balloon inflated at 8 atms for 15 secs. PTCA bal loon inflated at 14 atms for 20 secs. synergy 3.00 x 16 Drug Eluting stent was advanced across the le murray in the circumflex, ostial. Angiogram performed post stent deployment. nc emerge 3.00 x 8 Balloon catheter was inserted post stent. Angiogram performed post balloon dilatation. Angiogram performed p ost balloon deployment. The arterial sheath was pulled and a TR Band was applied for hemostasis 13 cc;s of air applied CORONARY ANGIOGRAPHY DOMINANCE: Right Dominant LEFT HEART ASSESSMENT Left Ventricular Ejection Fraction: by LV Gram 60 % Normal LV wall motion LEFT MAIN: Mild luminal irregularities LEFT ANTERIOR DESCENDING ARTERY: MID LAD: 80 % Stenosis DIAGONAL 1: Ostial - 80 % Stenosis. Small vessel CIRCUMFLEX ARTERY: OSTIAL CIRC: 90 % Stenosis RIGHT CORONARY ARTERY: MID RCA: 50 % Stenosis VALVE FINDINGS: No Aortic Valve Stenosis No Mitral Insufficency INTERVENTION INFORMATION LESION SITE: Circumflex (Ostial) Lesion Complexity: High/C, chronic total occlusion: No, lesion at bifurcation: Yes, thrombus present: No, lesion length: 14 mm, culprit lesion: Yes, Previously treated lesion: No Pre Stenosis: 90 % Pre intervention WILL flow: 3 PROCEDURE: Drug Eluting Stent with pre and post dilatation Tx options including CABG was discussed with patient. Pt. preferred PCI. Post Stenosis: 0 % Post intervention WILL flow: 3 Lesion Devices: Cardinal 6 Fr XB3.0 100cm Guide Catheter Sukh Sci EMERGE MR 3.00x15 BALLOON Sukh Sci Synergy MR MANASA 3.00x16 Sukh Sci NC EMERGE MR 3.00x08 BALLOON COMPLICATIONS No Complications PROCEDURE MEDICATIONS Versed 1 mg IV Fentanyl 50 mcg IV Oxygen: 2 L/min via nasal cannula Brilinta 180 mg PO @ 03/14/2019 12:03:53 Heparin given IA 03/14/2019 11:27:33 Heparin 3000 unit(s) IV 03/14/2019 11:44:15 Verapamil 2.5mg, Ntg 100mcgs, 3000 units of Heparin given IA 03/14/2019 11:27:33 SUMMARY OF HEMODYNAMIC DATA Time AIR REST ECG 09:42:22 AO 78/65 (71) SA 11:29:18 LV 112/4, 7 11:34:55 LV 115/6, 7 11:35:03 LV 111/5, 8 11:35:53 LV 117/6, 7 11:36:00 LVp 117/11, 0 11:36:15 AOp 116/66 (86) 11:36:20 Signed By Wood Marcano MD On 03/14/2019 18:39:50 Wood Marcano MD
[2019-03-14] MEDS: Atorvastatin Calcium 10 MG Tablet PO (21:11)
[2019-03-14] MEDS: TICAGRELOR 90 MG TABLET PO (21:11)
[2019-03-15] VITALS (16 sets, daily range): BP systolic 107–144; BP diastolic 64–88; PULSE 68–99; RESP 11–24; TEMP 36.8–36.9; O2SAT 95–98; BMI 27.1
[2019-03-15 05:27] LABS: Hematocrit 36.2 % (40-54); Mean Corp Hgb Conc 35.9 g/dL (32-36); Mean Corpuscular Hgb 35.3 pg (27.0-32.0); Mean Corpuscular Volume 98.4 fL (80-94); Mean Platelet Vol. 9.5 fl (6.2-12.0); Platelet Count 238 K/mm3 (150-450); RBC Distribution Width CV 11.7 % (11.6-14.6); RBC Distribution Width SD 42.2 fl (35.1-43.9); Red Blood Count 3.68 M/mm3 (4.6-6.2)
[2019-03-15 05:56] LABS: ALB/GLOB Ratio 0.9 RATIO (0.9-2.4); AST(SGOT) 14 U/L (15-37); Alanine Aminotransfer ALT/SGPT 13 U/L (16-61); Albumin, Serum 3.2 g/dL (3.2-5.0); Alkaline Phosphatase 52 U/L (45-117); Anion Gap 5 (5-15); BUN 17 mg/dL (7-18); BUN/Creat Ratio 21.9 RATIO (10-20); Calcium,Total 8.2 mg/dL (8.5-10.1); Chloride 110 mmol/L (98-107); Creatinine, Serum 0.78 mg/dL (0.70-1.30); EST Glomerular Filtration Rate 104 mL/min (>60); Est Glom Filt Rate - Afr Amer 126 mL/min (>60); Estimated Creatinine Clearance 59.37 ml/min; Globulin 3.5 g/dL (2.2-4.2); Glucose 97 mg/dL (74-106); Potassium 4.2 mmol/L (3.5-5.1); Protein, Total 6.7 g/dL (6.4-8.2); Sodium Level 140 mmol/L (136-145)
[2019-03-15] MEDS: Aspirin 81 MG TAB.CHEW PO (09:09)
[2019-03-15] MEDS: TICAGRELOR 90 MG TABLET PO (09:10)
[2019-03-15] MEDS: Omega-3 Acid Ethyl Esters 1 GM Capsule 4 GM PO (09:10)
--- NOTE | 2019-03-15 09:20 | PCM.DC.CCA ---
Discharge Diet: Low fat/ Low Cholesterol Discharge Activity: Return to Normal Activity May shower in (days): 1 Lifting Restrictions: 10 pounds and also avoid any pushing or pulling for 3 days after your test. Call your doctor if your incision/area has: Continuous Slow Oozing, Sudden Increased Bleeding, Increased Pain/ Swelling, Increased Redness, Foul Smelling Discharge, Swelling at the incision site Call your doctor if you observe: Fever of 101 or Higher, Shortness of breath, Chest pain Remove Dressing in (days):: 1 Additional Dressing/Incision Instructions:: Keep the dressing (bandage) on until the next morning. You may then shower, but do not take a tub bath for 5 days after your test. It is normal to have some tenderness and discomfort at the puncture site. Sometimes bruising also occurs. However, if pain, numbness, or coldness occurs below the puncture site (in your leg, toes, arms or fingers) call your doctor at once. You may have a small, marble sized knot at the puncture site. This is normal. Do not rub it. It will go away in 4-6 weeks. Bleeding can occur from the area where the puncture was done. Blood may spurt or drip from the site. If blood spurts, apply pressure right away to stop bleeding and call 911. Although rare, bleeding into the tissue (hematoma) can also occur. If this happens, a large, firm area goose egg under the skin will appear. If any of these occur, lie down as flat as you can and have someone apply firm pressure to the cath site with a gauze pad or a clean washcloth for 10-15 minutes. Call 911 or go to the Emergency Department. Additional Instructions: You will need to stay on the Brilinta for at least one year prior to stopping. We started you on a low dose beta nick, Carvedilol. This is to be taken twice a day. This is helpful for your heart and your blood pressure. We will be in contact with you on when your heart cath is scheduled for your next stent. We will see you in the office after than. Allergies/Adverse Reactions: Allergies No Known Allergies Allergy (Verified 03/11/19 13:11) Medications to take at Discharge omega-3 fatty acids 1,000 mg capsule 4,000 mg PO DAILY cap 03/08/19 aspirin 81 mg chewable tablet 81 mg PO DAILY 03/11/19 atorvastatin 10 mg tablet 10 mg PO DAILY #30 tab 03/11/19 Carvedilol [Coreg (Beta Nick)] 6.25 mg PO BID #60 tab 03/15/19 Ticagrelor [Brilinta] 90 mg PO BID #60 tab 03/15/19 The following prescriptions were given: Ticagrelor [Brilinta] 90 mg PO BID #60 tab Transmission Status: Pending to [id number] Carvedilol [Coreg (Beta Nick)] 6.25 mg PO BID #60 tab Transmission Status: Pending to [facility] [id number] Primary Care Physician: An Fuller DO [Primary Care Provider] - Test Results: Test results from this visit will be discussed in further detail at your follow-up appointment, if applicable. Please Follow Up With: Justin Marcano MD When: 04/24 at 1:30 Cardiac Rehabilitation Info Cardiac Rehabilitation Program Information: Cardiac Rehabilitation is important for patients like you who are recovering from a heart problem. Cardiac rehabilitation programs are recognized as integral to the continued care of the patient with coronary heart disease. The cardiac rehabilitation program is designed to optimize a patient's physical, psychological, and social functioning. Health director of healthcare systems work in cardiac rehabilitation programs and assist you with getting the treatments you need to get stronger and healthier - like exercise, healthy eating habits, and medications. Cardiac rehabilitation has been show to help people with heart problems live longer and have better life enjoyment than people who do not go to cardiac rehabilitation. Please contact the Cardiac Rehabilitation Program at [facility] at in two weeks if you have not heard from them.
--- NOTE | 2019-03-15 10:00 | EKG12_ITS ---
Test Reason : POST PCI Blood Pressure : / mmHG Vent. Rate : 078 BPM Atrial Rate : 078 BPM P-R Int : 154 ms QRS Dur : 084 ms QT Int : 400 ms P-R-T Axes : 061 -19 001 degrees QTc Int : 456 ms Normal sinus rhythm Low voltage QRS (Limb Leads) Nonspecific T-Wave Abnormality Borderline ECG Confirmed by DARIO TY, ENDY ([id number]), news videotape editor LAYO OZUNA ([id number]) on 03/20/2019 1:14:48 PM Referred By: Justin Marcano Confirmed By:ENDY BISHOP MD
[2019-03-15] MEDS: Carvedilol 6.25 MG Tablet PO (10:45)
--- NOTE | 2019-03-15 10:45 | CRPHASE1 ---
Patient Communication PHII Cardiac Rehab Discussed with Patient:: Yes Guide to Cardiac Rehab Given to Patient:: Yes Cardiac Rehab Facility Choice List Given to Patient:: Yes - [facility] Choice Program [facility] CR PHII:: Communication Given to CR, Refer to [facility] Environmental Safety Specialist:: Justin Marcano PCP:: An Fuller Sessions:: 36 sessions - 3 days/wk, 12 weeks Risk Factors/Lifestyle Smoking Status: Never smoker Hx Hypertension: Yes - ON MEDS Hx Diabetes Mellitus Type 2: No Height: 1.7 m Weight:: 78.5 kg BMI: 27.1 ETOH: No Caffeine: Yes Substance Abuse: No Family History: Family History (Last Reviewed 03/11/19 @ 14:57 by Justin Marcano MD) Mother Hypertension Father CVA (cerebral vascular accident) Myocardial infarction Heart disease Family History: Heart Disease, Hypertension Phase I Education Given On:: Dewey, Nutrition, Antiplatelet medication, CHF Issues Affecting Care:: None Knowledge of Condition:: Yes - GOING TO BE COMING BACK IN A FEW WEEKS FOR ANOTHER STENT PLACEMENT Hospital Course Cardiac Cath Date:: 03/15/19 Medical/Surgical History GA:: No Angina:: No Diabetes Type II:: No Hypertension:: Yes - ON MEDS Discharge/Home/Social Eval Discharge Disposition: Home Marital Status: Cardiac Rehabilitation Info Cardiac Rehabilitation Program Information: Cardiac Rehabilitation is important for patients like you who are recovering from a heart problem. Cardiac rehabilitation programs are recognized as integral to the continued care of the patient with coronary heart disease. The cardiac rehabilitation program is designed to optimize a patient's physical, psychological, and social functioning. Health care manager work in cardiac rehabilitation programs and assist you with getting the treatments you need to get stronger and healthier - like exercise, healthy eating habits, and medications. Cardiac rehabilitation has been show to help people with heart problems live longer and have better life enjoyment than people who do not go to cardiac rehabilitation. Please contact the Cardiac Rehabilitation Program at [facility] at in two weeks if you have not heard from them.
--- NOTE | 2019-03-15 10:49 | CRPH1.INSTRU ---
General Education CAD and cardiac anatomy and function:: Patient communicates acknowledgment Explanation of diagnoses and procedures:: Patient communicates acknowledgment Sign/Symptoms of OH:: Not instructed Antiplatelet therapy: Not instructed Proper use of NTG-SL: Not instructed Emergency procedures and activation of EMS: Not instructed Compliance of all prescribed medications: Not instructed Smoking Patient Nicotine/Smoking Risk Factors Are:: Never smoked Dyslipidemia Recommendations Include:: Lipid profile not available Overweight/Obesity Patient Overweight/Obesity Risk Factors Are:: BMI Normal [24-29 & > 65 years old] Overweight/Obesity:: Patient communicates acknowledgment Hypertension Patient Hypertension Risk Factors Are:: No documented hx of HTN - placed on meds Heart Disease Patient Heart Disease Risk Factors Are:: Family history of heart disease < 65 years old Heart Disease Response Code:: Patient communicates acknowledgment Diabetes Patient Diabetes Risk Factors Are:: No documented hx of diabetes Metabolic Syndrome Recommendations Include:: Does not meet criteria Sedentary Sedentary Response Code:: Patient communicates acknowledgment Stress Patient Stress Risk Factors Are:: Patient denies stress as a risk factor
--- NOTE | 2019-03-15 13:08 | PCM.PN.CARD ---
<FelipeTiffany M - Last Filed: 03/15/19 13:08> Subjectve: Patient has no complaints. He does not have any chest pain or shortness of breath. Objective: Vital Signs Temp Pulse Resp BP Pulse Ox 98.4 F 82 18 107/70 95 03/15/19 12:00 03/15/19 12:00 03/15/19 12:00 03/15/19 12:00 03/15/19 12:00 Oxygen Delivery Method Room Air Weight: 173 lb 1.006 oz Body Mass Index (BMI) 27.6 Intake and Output for Last 24 Hours 03/13/19 03/14/19 03/15/19 23:59 23:59 23:59 Intake Total 609 / 809 400 / 400 Output Total 550 / 550 Balance 609 / 259 -150 / -150 General: Healthy Appearing, Awake, Alert, Oriented x 3 HEENT: Atraumatic, Normocephalic Oral: Moist Mucosa Neck: Supple, Good ROM Lungs: Clear to auscultation Cardiovascular: Regular Rhythm, Normal S1, Normal S2, No Murmurs, No Rubs, No Gallops Abdomen: Bowel Sounds Present, Soft, Non Tender Extremities: No Cyanosis, No Clubbing, No edema Neurological: No Focal Motor or Sensory Deficit, CN II-XII Intact Psych/Mental Status: Appropriate 03/15/19 04:55: WBC 8.0, RBC 3.68 L, Hgb 13.0, Hct 36.2 L, MCV 98.4 H, MCH 35.3 H, MCHC 35.9, Plt Count 238, MPV 9.5 03/15/19 04:55: Sodium 140, Potassium 4.2, Chloride 110 H, Carbon Dioxide 25.0, Anion Gap 5, BUN 17, Creatinine 0.78, Est GFR (MDRD) Af Amer 126, Est GFR (MDRD) Non-Af 104, BUN/Creatinine Ratio 21.9 H, Glucose 97, Calcium 8.2 L, Total Bilirubin 0.70 Rhythm: EKG: ECHO: Stress Test: Cardiac Cath:CAD as described. Preserved EF. No significant or MR. Successful PCI of ostial LCx with MANASA. PCI: CT Surgery: Holter monitor: EPS: PPM: CXR: Chest CT Scan: Medical Necessity - Tobacco Use Smoking Status: Never smoker Assessment/Plan 1. Coronary artery disease with stenting to circumflex: Patient underwent a diagnostic heart catheterization yesterday 80% stenosis of mid LAD, 80% stenosis of the ostial of the diagonal #1 this is a small vessel, 90% stenosis of the circumflex and 50% stenosis of the RCA. He underwent stenting of his circumflex. There is going to be a planned staged procedure for stenting of his LAD. This will be in 2 to 4 weeks. Patient was started on Brilinta. Patient will also be started on Coreg for blood pressure and heart rate control. At his next office visit we will consider starting him on an FAITH inhibitor. He is on high intensity statin. Patient had multiple questions these were all addressed with patient during office visit. <Korey Wni - Last Filed: 03/15/19 14:11> Objective: Vital Signs Temp Pulse Resp BP Pulse Ox 98.4 F 80 18 109/64 96 03/15/19 12:00 03/15/19 13:00 03/15/19 13:00 03/15/19 13:00 03/15/19 13:00 Oxygen Delivery Method Room Air Weight: 173 lb 1.006 oz Body Mass Index (BMI) 27.6 Intake and Output for Last 24 Hours 03/13/19 03/14/19 03/15/19 23:59 23:59 23:59 Intake Total 609 / 809 400 / 400 Output Total 550 / 550 Balance 609 / 259 -150 / -150 03/15/19 04:55: WBC 8.0, RBC 3.68 L, Hgb 13.0, Hct 36.2 L, MCV 98.4 H, MCH 35.3 H, MCHC 35.9, Plt Count 238, MPV 9.5 03/15/19 04:55: Sodium 140, Potassium 4.2, Chloride 110 H, Carbon Dioxide 25.0, Anion Gap 5, BUN 17, Creatinine 0.78, Est GFR (MDRD) Af Amer 126, Est GFR (MDRD) Non-Af 104, BUN/Creatinine Ratio 21.9 H, Glucose 97, Calcium 8.2 L, Total Bilirubin 0.70 Rhythm: EKG: ECHO: Stress Test: Cardiac Cath: PCI: CT Surgery: Holter monitor: EPS: PPM: CXR: Chest CT Scan: Assessment/Plan Addendum: Date: 12-13-19 The patient was independently evaluated and examined. The patient appears to be resting comfortably at this time with no symptoms of ongoing chest discomfort or difficulty breathing. His cardiac catheterization site appears to be stable with no evidence of ecchymoses, hematoma, or bruit. His lungs appear to be clear to auscultation and percussion bilaterally. His cardiovascular examination demonstrates a regular rhythm with a normal S1 and S2. His cardiac rhythm demonstrates sinus rhythm with PACs. His ECG demonstrated sinus rhythm with PACs with low voltage QRS in the limb leads. Overall he appears to be stable at this time with respect to his history of CAD and PCI. The plan will be for continued medical management with a staged procedure to his LAD distribution. Comment: The above was discussed and reviewed with the patient, his spouse, and CRISTINA Angel. This note was generated using a voice recognition system and there may be incorrect words, spelling or punctuation that were not noted when reviewing the office note prior to saving.
== END 2019-03-15 13:40 | disposition home or self-care (01) ==
LOC: CVS 08:40 → ICU 03-15 10:10
PROVIDERS: Family Provider Family Medicine; PCP Family Medicine; Referring Provider Specialist; Visit Provider Specialist
DX: I25.10 Atherosclerotic heart disease of native coronary artery without angina pectoris (principal); I10 Essential (primary) hypertension; E78.5 Hyperlipidemia, unspecified; Z95.5 Presence of coronary angioplasty implant and graft; Z79.82 Long term (current) use of aspirin; Z79.899 Other long term (current) drug therapy
CPT/HCPCS: 36415; 80048; 80053; 85025; 85027; 85610; 85730; 92928; 93005; 93306; 93458; 99152; 99153; J7030; J7040; Q9967; C1725; C1751; C1769; C1874; C1887; C1894; C9600; J1327

== ENCOUNTER 2019-03-28 09:36 | Day surgery (SDC) | payer OTHER, MEDICARE, SELFPAY ==
[2019-03-14 12:27] VITALS: BMI 27.6
[2019-03-15 10:49] VITALS: BMI 27.1
[2019-03-25 08:04] VITALS: BMI 27.1
[2019-03-28] VITALS (20 sets, daily range): BP systolic 108–161; BP diastolic 63–91; PULSE 60–84; RESP 11–20; TEMP 36.4–36.6; O2SAT 96–98; BMI 26.4
--- NOTE | 2019-03-28 12:00 | EKG12_ITS ---
Test Reason : POST PCI Blood Pressure : / mmHG Vent. Rate : 060 BPM Atrial Rate : 060 BPM P-R Int : 176 ms QRS Dur : 086 ms QT Int : 426 ms P-R-T Axes : 071 -11 003 degrees QTc Int : 426 ms Normal sinus rhythm Low voltage QRS Borderline ECG When compared with ECG of 15-MAR-2019 04:46, Premature atrial complexes are no longer Present Confirmed by RADHA ESPANA ([id number]), editor managing director KANDACE MESSINA ([id number] on 04/02/2019 3:13:25 PM Referred By: Justin Marcano Confirmed By:RADHA ESPANA
[2019-03-28] MEDS: 0.9% Normal Saline 1,000 ML 100 ML IV (13:24)
--- NOTE | 2019-03-28 17:36 | CL.I_ITS ---
Patient Name: RADHA RIVERA Study Date: 03/28/2019 Performing: Wood Marcano MD Ht: 67 inches 170 cm : 1945 Wt: 172.2 lbs 78 kg Age: 74 Gender: male BSA: 1.89 PROCEDURE(S) PERFORMED [id number] W OR WO PTCA, SINGLE CORONARY ARTERY CLINICAL PROFILE AND CO-MORBIDITIES Indications: Abnormal Ca Score. Pt. returning for staged PCI of LAD Heart Failure: None Stress/Imaging Stress/Image Study Performed: No CAD Presentations: Other: Abn Ca Score CONCLUSIONS Successful PTCA/MANASA to mLAD RECOMMENDATIONS ASA Indefinitley Brilinta for at least 12 months Follow up with primary loan teller DESCRIPTION OF PROCEDURE The patient arrived to the procedure lab. The risks and benefits of the procedure as well as a full d escription of our services here and current unavailability of surgical backup were fully explained to the patient and/or their significant other prior to the catheterization. The Timeout was completed, verifying the correct patient and procedure. The patient's procedural site was prepped and draped in the usual fashion. Local anesthetic was given subcutaneously to right radial region with Lidocaine 2% . Using a modified Seldinger technique, arterial access was obtained via the right radial artery, a 6 Fr sheath was inserted.. XB 3.0 Guide catheter was inserted and engaged into the LCA. BMW Guide wire was advanced to the L AD. 2.5 x 8 Synergy Drug Eluting stent was advanced across the lesion in the LAD, mid. 2.5 x 8 NC Anette rge Balloon catheter was advanced across lesion in the LAD, mid. Angiogram performed post stent deplo yment. The arterial sheath was pulled and a TR Band was applied for hemostasis INTERVENTION INFORMATION LESION SITE: LAD (Mid) Lesion Complexity: Non-High/Non-C, chronic total occlusion: No, lesion at bifurcation: No, thrombus p resent: No, lesion length: 5 mm, culprit lesion: Yes, Previously treated lesion: No Pre Stenosis: 80 % Pre intervention WILL flow: 3 PROCEDURE: Drug Eluting Stent with post dilatation Post Stenosis: 0 % Post intervention WILL flow: 3 Lesion Devices: Cardinal 6 Fr XB3.0 100cm Guide Catheter Gibbs .014 BMW Big [place] Straight 190cm Sukh Sci Synergy MR MANASA 2.50x08 Sukh Sci NC EMERGE MR 2.50x08 BALLOON COMPLICATIONS No Complications PROCEDURE MEDICATIONS Versed 1 mg IV Fentanyl 50 mcg IV Oxygen: 2 L/min via nasal cannula Heparin given IA 03/28/2019 11:33:26 Heparin 3000 unit(s) IV 03/28/2019 11:33:49 Verapamil 2.5mg, Ntg 100mcgs, 3000 units of Heparin given IA 03/28/2019 11:33:26 SUMMARY OF HEMODYNAMIC DATA Time AIR REST ECG 09:52:57 AO 109/68 (84) SA 11:35:42 Signed By Wood Marcano MD On 03/28/2019 5:35:27 PM Wood Marcano MD
[2019-03-28] MEDS: Carvedilol 6.25 MG Tablet PO (21:06)
[2019-03-28] MEDS: TICAGRELOR 90 MG TABLET PO (21:19)
[2019-03-29] VITALS (10 sets, daily range): BP systolic 115–128; BP diastolic 57–89; PULSE 57–77; RESP 12–23; TEMP 36.6–36.8; O2SAT 96–98
[2019-03-29] MEDS: 0.9% Saline Lock 10 ML Syringe IV (03:51)
[2019-03-29 04:14] LABS: Hematocrit 34.7 % (40-54); Hemoglobin 12.5 g/dL (13.0-16.5); Mean Corpuscular Hgb 35.3 pg (27.0-32.0); Mean Platelet Vol. 9.3 fl (6.2-12.0); Platelet Count 287 K/mm3 (150-450); RBC Distribution Width CV 11.5 % (11.6-14.6); Red Blood Count 3.54 M/mm3 (4.6-6.2); White Blood Count 5.8 K/mm3 (4.4-11.0)
[2019-03-29 04:31] LABS: AST(SGOT) 12 U/L (15-37); Alanine Aminotransfer ALT/SGPT 15 U/L (16-61); Albumin, Serum 3.1 g/dL (3.2-5.0); Alkaline Phosphatase 51 U/L (45-117); Anion Gap 6 (5-15); BUN 16 mg/dL (7-18); BUN/Creat Ratio 19.4 RATIO (10-20); Calcium,Total 8.3 mg/dL (8.5-10.1); Chloride 110 mmol/L (98-107); Creatinine, Serum 0.82 mg/dL (0.70-1.30); EST Glomerular Filtration Rate 97 mL/min (>60); Est Glom Filt Rate - Afr Amer 117 mL/min (>60); Estimated Creatinine Clearance 73.89 ml/min; Globulin 3.2 g/dL (2.2-4.2); Glucose 90 mg/dL (74-106); Potassium 3.8 mmol/L (3.5-5.1); Protein, Total 6.3 g/dL (6.4-8.2); Sodium Level 141 mmol/L (136-145)
--- NOTE | 2019-03-29 06:29 | CRPHASE1_ITS ---
Patient Communication Former Patient:: Phase I PHII Cardiac Rehab Discussed with Patient:: Yes - Patient seen on 03/15/2019 following previous PCI intervention. Guide to Cardiac Rehab Given to Patient:: Yes Cardiac Rehab Facility Choice List Given to Patient:: Yes Choice Program [facility] CR PHII:: Communication Given to CR, Refer to [facility] Hose Sprayer:: Justin Marcano Refer Phase II Cardiac Rehab:: Yes - Previous Order Received for Phase II CR Sessions:: 36 sessions - 3 days/wk, 12 weeks Risk Factors/Lifestyle Family History: Family History (Last Reviewed 03/11/19 @ 14:57 by Justin Marcano MD) Mother Hypertension Father CVA (cerebral vascular accident) Myocardial infarction Heart disease Cardiac Rehabilitation Info Cardiac Rehabilitation Program Information: Cardiac Rehabilitation is important for patients like you who are recovering from a heart problem. Cardiac rehabilitation programs are recognized as integral to the continued care of the patient with coronary heart disease. The cardiac rehabilitation program is designed to optimize a patient's physical, psychological, and social functioning. Health healthcare administration intern work in cardiac rehabilitation programs and assist you with getting the treatments you need to get stronger and healthier - like exercise, healthy eating habits, and medications. Cardiac rehabilitation has been show to help people with heart problems live longer and have better life enjoyment than people who do not go to cardiac rehabilitation. Please contact the Cardiac Rehabilitation Program at [facility] at in two weeks if you have not heard from them.
--- NOTE | 2019-03-29 06:31 | CRPH1.INSTRU ---
General Education CAD and cardiac anatomy and function:: Not instructed Explanation of diagnoses and procedures:: Not instructed Sign/Symptoms of IN:: Not instructed Antiplatelet therapy: Not instructed Proper use of NTG-SL: Not instructed Emergency procedures and activation of EMS: Not instructed Compliance of all prescribed medications: Not instructed - Cover material with patient on 03/15/2019 follwoing previous PCI intervention.
[2019-03-29] MEDS: TICAGRELOR 90 MG TABLET PO (08:20)
[2019-03-29] MEDS: Aspirin 81 MG TAB.CHEW PO (08:20)
[2019-03-29] MEDS: Carvedilol 6.25 MG Tablet PO (08:20)
--- NOTE | 2019-03-29 08:57 | PCM.DC.CCA ---
Discharge Diet: Low fat/ Low Cholesterol Discharge Activity: Return to Normal Activity May shower in (days): 1 Lifting Restrictions: 10 pounds and also avoid any pushing or pulling for 3 days after your test. Call your doctor if your incision/area has: Continuous Slow Oozing, Sudden Increased Bleeding, Increased Pain/ Swelling, Increased Redness, Foul Smelling Discharge, Swelling at the incision site Call your doctor if you observe: Fever of 101 or Higher, Shortness of breath, Chest pain Remove Dressing in (days):: 1 Cleanse incision/area with: Soap & Water Additional Dressing/Incision Instructions:: Keep the dressing (bandage) on until the next morning. You may then shower, but do not take a tub bath for 5 days after your test. It is normal to have some tenderness and discomfort at the puncture site. Sometimes bruising also occurs. However, if pain, numbness, or coldness occurs below the puncture site (in your leg, toes, arms or fingers) call your doctor at once. You may have a small, marble sized knot at the puncture site. This is normal. Do not rub it. It will go away in 4-6 weeks. Bleeding can occur from the area where the puncture was done. Blood may spurt or drip from the site. If blood spurts, apply pressure right away to stop bleeding and call 911. Although rare, bleeding into the tissue (hematoma) can also occur. If this happens, a large, firm area goose egg under the skin will appear. If any of these occur, lie down as flat as you can and have someone apply firm pressure to the cath site with a gauze pad or a clean washcloth for 10-15 minutes. Call 911 or go to the Emergency Department. Additional Instructions: You will need to stay on the Brilinta for at least one year before you stop it for any reason. Please follow up with cardiac rehab. Allergies/Adverse Reactions: Allergies No Known Allergies Allergy (Verified 03/11/19 13:11) Medications to take at Discharge omega-3 fatty acids 1,000 mg capsule 4,000 mg PO DAILY cap 03/08/19 aspirin 81 mg chewable tablet 81 mg PO DAILY 03/11/19 atorvastatin 10 mg tablet 10 mg PO DAILY #30 tab 03/11/19 Carvedilol [Coreg (Beta Nick)] 6.25 mg PO BID #60 tab 03/15/19 Ticagrelor [Brilinta] 90 mg PO BID #60 tab 03/15/19 Primary Care Physician: An Fuller DO [Primary Care Provider] - Test Results: Test results from this visit will be discussed in further detail at your follow-up appointment, if applicable. Please Follow Up With: Justin Marcano MD When: 04/24 at 1:30pm Cardiac Rehabilitation Info Cardiac Rehabilitation Program Information: Cardiac Rehabilitation is important for patients like you who are recovering from a heart problem. Cardiac rehabilitation programs are recognized as integral to the continued care of the patient with coronary heart disease. The cardiac rehabilitation program is designed to optimize a patient's physical, psychological, and social functioning. Health care provider work in cardiac rehabilitation programs and assist you with getting the treatments you need to get stronger and healthier - like exercise, healthy eating habits, and medications. Cardiac rehabilitation has been show to help people with heart problems live longer and have better life enjoyment than people who do not go to cardiac rehabilitation. Please contact the Cardiac Rehabilitation Program at [facility] at in two weeks if you have not heard from them.
--- NOTE | 2019-03-29 09:43 | CASEMGMT ---
RN ROSALBA NOTE: To room to talk with pt. Pt sitting up in recliner chair. A/O. Introduced self and role of MERLINE NAVARRETE. Pt denies having any concerns w/going home @ discharge. Denies any discharge planning needs. Will be going home on Brilinta, which pt was on previously. He denies having any questions about the Brilinta and states the [id number] cost is approx $50/month, which he states is affordable. Fely BSN RN CM
--- NOTE | 2019-03-29 10:00 | EKG12_ITS ---
Test Reason : AM EKG Blood Pressure : / mmHG Vent. Rate : 064 BPM Atrial Rate : 064 BPM P-R Int : 158 ms QRS Dur : 088 ms QT Int : 442 ms P-R-T Axes : 051 -03 017 degrees QTc Int : 455 ms Normal sinus rhythm Low voltage QRS Borderline ECG When compared with ECG of 15-MAR-2019 04:46, Premature atrial complexes are no longer Present Confirmed by RADHA ESPANA ([id number]), editor news KANDACE MESSINA ([id number]) on 04/02/2019 3:13:47 PM Referred By: Justin Marcano Confirmed By:RADHA ESPANA
--- NOTE | 2019-03-29 10:28 | PN.CARD_ITS ---
Subjectve: Patient doing very well, no 24-hour events. Chest pain. Telemetry showed normal sinus rhythm with a 6 beat run of nonsustained ventricular tachycardia which self terminated. EKG shows normal sinus rhythm, low voltage, no acute changes. Hemoglobin and creatinine within nominal limits. Objective: Vital Signs Temp Pulse Resp BP Pulse Ox 98.2 F 71 15 117/64 98 03/29/19 08:00 03/29/19 08:00 03/29/19 08:00 03/29/19 08:00 03/29/19 08:00 Oxygen Delivery Method Room Air Weight: 169 lb 1.513 oz Body Mass Index (BMI) 26.4 Intake and Output for Last 24 Hours 03/27/19 03/28/19 03/29/19 23:59 23:59 23:59 Intake Total 1200 / 1200 240 / 240 Balance 1200 / 1200 240 / 240 General: Awake, Alert, Oriented x 3 HEENT: PERRL, EOMI, Sclera Non Icteric Neck: Supple, Good ROM, No Lymph Node Enlargement Lungs: Clear to auscultation Cardiovascular: Regular Rhythm, Normal S1, Normal S2, No Murmurs, No Rubs, No Gallops Vascular: No Carotid Bruits, Normal Femoral Pulses, Normal Radial Pulses, Normal Dorsalis Pedal Pulse, Normal Posterior Tibial Pulses Abdomen: Bowel Sounds Present, Soft, Non Tender, No HSM, No Organomegaly Extremities: No Cyanosis, No Clubbing, No edema Neurological: No Focal Motor or Sensory Deficit 03/29/19 03:50: WBC 5.8, RBC 3.54 L, Hgb 12.5 L, Hct 34.7 L, MCV 98.0 H, MCH 35.3 H, MCHC 36.0, Plt Count 287, MPV 9.3 03/29/19 03:50: Sodium 141, Potassium 3.8, Chloride 110 H, Carbon Dioxide 25.0, Anion Gap 6, BUN 16, Creatinine 0.82, Est GFR (MDRD) Af Amer 117, Est GFR (MDRD) Non-Af 97, BUN/Creatinine Ratio 19.4, Glucose 90, Calcium 8.3 L, Total Bilirubin 0.60 Rhythm: EKG: ECHO: Stress Test: Cardiac Cath: PCI: CT Surgery: Holter monitor: EPS: PPM: CXR: Chest CT Scan: Medical Necessity - Tobacco Use Smoking Status: Never smoker Assessment/Plan 1. Coronary artery disease: The patient is status post angioplasty and drug- eluting stenting to his mid LAD receiving a 2.5X8 Promus Synergy postdilated the 2.5 noncompliant balloon. He has had no chest pain overnight. Telemetry showed essentially normal sinus rhythm with a 6 beat run of nonsustained ventricular tachycardia which is asymptomatic. At this point the patient will continue his aspirin, Brilinta, Coreg, and he will start FAITH inhibitor or ARB as an outpatient once he attends cardiac rehab. His right radial area is clean/dry/intact without evidence of hematoma, tenderness or infection. Patient to follow-up with Dr. Marcano going forward. 2. Hyperlipidemia: Continue Lipitor therapy. Repeat lipid profile at the conclusion of cardiac rehab. 3. Nonsustained ventricular tachycardia: The patient was asymptomatic and had a self terminating 6 beat run of nonsustained ventricular tachycardia. He is on Coreg. Continue present management. Do not believe he requires antiarrhythmic therapy at this time. 4. Patient will be discharged home and follow-up Dr. Marcano going forward. Code Visit Inpatient E&M: 55918 Subs Hosp L2
== END 2019-03-29 10:50 | disposition home or self-care (01) ==
LOC: CLSP 09:37 → ICU 03-29 12:53
PROVIDERS: Family Provider Family Medicine; PCP Family Medicine; Referring Provider Specialist; Visit Provider Specialist
DX: I25.10 Atherosclerotic heart disease of native coronary artery without angina pectoris (principal); I47.2 Ventricular tachycardia; I10 Essential (primary) hypertension; E78.5 Hyperlipidemia, unspecified; R93.1 Abnormal findings on diagnostic imaging of heart and coronary circulation; Z95.5 Presence of coronary angioplasty implant and graft; Z79.82 Long term (current) use of aspirin
CPT/HCPCS: 80053; 85027; 92928; 93005; 99152; 99153; J7030; J7040; Q9967; A4216; C1725; C1769; C1874; C1887; C1894; C9600

== ENCOUNTER → 2019-05-14 09:54 | Outpatient (CLI) | payer MEDICARE, SELFPAY ==
[2019-03-15 10:49] VITALS: BMI 27.1
[2019-03-28 13:25] VITALS: BMI 26.4
[2019-04-24 13:24] VITALS: BMI 27.3
--- NOTE | 2019-05-14 10:19 | PCM.CR.ITP ---
Diagnosis - General Information Admitting Diagnosis: PCI W/CORONARY STENT PLACEMENT Secondary Diagnosis: INCREASED CALCIUM SCORE, HTN, HLD. Personal Learning Style:: Audio/Visual, Written Barriers to Learning: Hearing Impairment, Vision Impairment Stage of change r/t lifestyle modifications:: Action Gave educational material for:: Treating Heart Disease, Emotions & Heart Disease, Stress Management & Relaxation, Sleep Disorders & Heart Disease, How The Heart Works, What it means to have Heart Disease, How Coronary Artery Disease is Diagnosed, Heart Procedures, What Heart Medications Do, Risk Factors & Modifications, Living an Active Life, Nutrition - Education/Goals Individual Counseling: Initial Assessment: Abnormal Cholesterol Levels, High Blood Pressure Cardiac Rehabilitation Goals: 1. Maintain the individual as the primary focus of care. 2. To improve the patient's quality of life. 3. Identification of cardiac risk factors and provide cardiac risk factor management. 4. Enhance the psychosocial status of the patient. 5. Reconditioning enough to allow the patient to resume customary activities. 6. Control symptoms of cardiac disease Personal Goals: Initial Assessment: Improve energy level, Improve knowledge of cardiac disease, Improve muscle strength and endurance, Improve diet and eating habits (eat healthier) Scale for measuring improvement of personal goals: Enter appropriate number in Comments. 2 = Unchanged. 3 = Slightly Better. 4 = Moderate Improvement. 5 = Met my Goal - Diagnosis & Disease Process Outcomes/Goals: Pt IDs own risk factors & lifestyle modifications by Session 10, Verbalizes symptoms of angina & response by session 3., Pt independently manages Plan/Interventions: Assist Pt to ID & engage in lifestyle modification to reduce CVD risk, Instruct on individual risk factors, Review symptoms of angina & emergency actions, Review secondary diagnosis & identify educational needs. Exercise - Initial Assessment - Visit Date of Eval: 05/14/19 Session #:: 0 - INITIAL EVALUATION Mets: Pre-: >5 METS for 30 minutes by discharge - Physician Prescribed Exercise Modalities: Treadmill, Rower, Airdyne, NuStep Frequency: 3x/week for 12 weeks [36 sessions] Intensity: 60-80% of age predicted maximum heart rate reserve Current METSs:: 3.5 Target Heart Rate:: 95-124 - Outcomes & Goals Goals:: Verbalizes understanding of THR, RPE & goal METS by session 6, Documents in home exercise log/reports 30 min aerobic 5 day/wk by DC, Demonstrates accurate pulse taking by DC - Intervention & Plan Exercise Program Goals: Instruct on personal THR & RPE, Instruct on MET level & personal MET goal, Show patient to take own pulse /validate performance until accurate, Instruct on home exercise - Physical Activity Home Exercise Physical Activity - Home Exercise: Safe Exercise, Warm-up, Self-monitoring, Cool-Down, Home Exercise > 30 min Daily, Sitting Time <3 hours/daily - Outcomes & Goals Outcomes/Goals: Demonstrates correct Warm-up/exercise Cool-Down (S3) if = 2.5 METs, Verbalizes symptoms of exercise intolerance by Session 3 (S3), Demonstrate safe equipment use (S3) & follows exercise prescrition (6) - Intervention & Plan Plan/Intervention: Instruct warm-up & cool-down if exercising at > 2 METs, Instruct on symptoms of exercise intolerance & actions to take, Instruct & monitor on saf, Assess intial functional capacity & safety risk Nutrition - Initial Assessment - Program Goals Nutrition Program Goals: LDL <100 optimal. 100 - 129 Near optimal. 130 - 159 Borderline High. 160 - 189 High. Total Cholesterol <200 desirable. 200 - 239 Borderline High. >/= 240 High. HDL < 40 Low >/=60 High. Triglycerides <150 desirable. <199 optimal. VlDL 5 - 40. HgbA1C <7%. BMI <25 Patient has diagnosis of Hyperlipidemia (ICD E78)?: Yes - Visit Date of Assessment:: 05/14/19 Session #:: 0 - INITIAL EVALUATION - Cholesterol/Lipids Triglycerides (mg/dL): 63 Total Cholesterol (mg/dL): 297 LDL Cholesterol (mg/dL): 231 HDL Cholesterol (mg/dL): 53 Determine presence & major risk factors that modify LDL goal: Age men > 45 years; women >/= 55 years Outcomes/Goals: Pt IDs own risk factors & lifestyle modifications by Session 10, Verbalizes symptoms of angina & response by session 3., Pt independently manages Intervention/Plan: Instruct on personal lipid levels & lipid goals/NCEP guidelines, Instruct on cholesterol Referral to dietitian:: Yes - Diabetes (Other Core Measures) Diabetes Type: Not Applicable - Weight Mgt (Other Care) Not Applicable: Yes Height: 5 ft 7 in Weight:: 173 lb BMI: 27.1 Diagnosis Overweight/Obesity BMI> 30% ICD-10 E66: No Diagnosis High BMI/Morbid Obesity BMI> 35% ICD-10 Z68: No Outcomes/Goals: Pt sets, maintains & shows weight loss goal & trend during rehab Intervention/Plan: Instruct on ideal BMI & set weight loss goal w/patient, Assist pt to ID & incorporate diet changes for weight loss by S9, Encourage goal of using 250-300dcal per session for weight loss - Healthy Eating Habits Will attend diet classes:: Yes Outcomes/Goals:: Consume diet rich in vegs,fruits,whole grain/high fiber,fish,lean meat, Limit sat/trans fats,cholesterol & added salts & sugars Intervention/Plan:: Assess current eating habits - Education Gave educational materials for:: Healthy eating Medical - Initial Assessment - Visit Date of Eval: 05/14/19 Session #:: 0 - INITIAL EVALUATION - Medication Compliance Preventative Medication(s):: Aspirin, Ticagrelor/P2Y12 inhibitor, Statin/lipid, Beta humble H/O mental health issues: depression, anxiety, or addiction?: No Doesn?t believe in the benefits of treatment?: No Believes medications are unnecessary or harmful?: No Has a concern about medication side effects?: No Expresses concern over the cost of medications?: No Outcomes/Goals: Verbalizes medications,desired effect & common side effects @ DC, Pt self-reports following medication regimen, Keeps card in wallet w/medications listed by DC Interventions/plans: Instruct on medication effects & side effects, Review medication list w/patient every two weeks, Instruct importance of taking meds as ordered & assist problem solving - Tobacco Use Tobacco Use: Non-smoker - Hypertension Resting Blood Pressure:: 136/69 Citizen [place] [employer] Hypertension Guidelines: [place] [employer] Hypertension Guidelines. Normal BP Less than 120/80. Elevated BP 120/80. Hypertension Stage 1: BP 130-139/80-89. Hypertesnion Stage 2: BP 140 or higher/90 or higher. Hypertension Crisis: BP higher than 180/120 Outcomes/Goals: Able to verbalize/achieve optimal blood pressure <130/80, Incorporates diet changes & exercise for blood pressure control by DC Interventions/plan: Instruct on optimal blood pressure, hypertension & medications, Instruct on effects of sodium, alcohol, stress, exercise &hypertension - Tobacco Cessation Referral Smoking Cessation Referral:: No Individual Education/Counseling:: No Education Schedule Given:: Yes Psychosocial - Initial Assess - VIsit Date of Eval: 05/14/19 Session #:: 0 - INITIAL EVALUATION Not Applicable: Yes History of previous Mental disease:: No - Target Goals Target Goals: Assess presence or absence of depression. Using a valid screening tool, maximizes coping skills. Positive support system - Psychosocial Test Tool Used:: Hyacinth De La Rosa QOL Cardiac, PHQ-9 Questionnaire phq-9 Severity: Severity. 1-4 Minimal Depression. 5-9 Mild Depression. 10-14 Moderate Depression. 15-19 Moderately Sever Depression. 20-27 Severe Depression. Rule: - Referral to Behavioral Health PS - Interventions: Yes Attend Stress Management Classes, No Referral to Behavioral Health if PHQ-9 score >9:, No Referral to [facility], No Referral to Physician if PHQ-9 if score is 5-9: - Outcomes/Goals: See list Psychosocial Outcomes/Goals:: ID's personal stressors & 2 strategies to manage stress by discharge - Intervention/Plan: See List Interventions/Plan:: Assess stressors,coping strategies & signs of derpression on admission, Instruct/assist pt to develop coping & personal stress Mgt strategies, Instruct patient to recognize signs & symptoms of depression, Instruct patient to recog Patient Health Questionnaire Initial Assessment 1. Little interest or pleasure in doing things: Not at all 2. Feeling down, depressed, or hopeless: Not at all 3. Trouble falling or staying asleep, or sleeping too much: Not at all 4. Feeling tired or having little energy: Not at all 5. Poor appetite or overeating: Not at all 6. Feeling bad about yourself -- or that you are a failure or have let yourself or your family down: Not at all 7. Trouble concentrating on things, such as reading the newspaper or watching television: Not at all 8. Moving or speaking so slowly that other people could have noticed. Or the opposite - being so fidgety or restless that you have been moving around a lot more than usual: Not at all 9. Thoughts that you would be better off , or of hurting yourself in some way: Not at all How difficult have these problems made it for you to do your work, take care of things at home, or get along with other people?: Not difficult at all Total Score: 0 ADAL-Q SV Test - Statements CAD is a disease of the arteries in the heart: False Examples of risk factors for heart disease: True Angina is chest pain or discomfort: True The benefits of resistance training include: True Eating more meat and dairy products: False Anti-platelet medications such as aspirin are important: True The only effective way to manage stress: False An exercise warm-up slowly increases heart rate: True Prepared, processed foods usually have high sodium: True Depression is common after a heart attack: I Don't Know The statin medications lower cholesterol: True To control blood pressure, lower the amount of sodium: True If someone gets chest discomfort during walking: False Transfats are partially hydrogenated vegetable oils: I Don't Know Sleep apnea that is not treated increases the risk: I Don't Know To control cholesterol, one should become a vegetarian: I Don't Know Someone knows if he/she is exercising at the right level: I Don't Know Diabetes cannot be prevented with exercise & health eating: False Stress is a large risk for heart attack: True A diet that can help lower blood pressure is rich in: True - Total Score Total Correct Responses: 15 Self-Efficacy Initial Assessment We would like to know how confident you are in doing certain activities. Please select your confidence level for:: Select your confidence level for the following using the scale 1-10 where 1 is not at all confident and 10 is totally confident. Your score is the average of all 6 responses. Fatigue: How confident are you that you can keep the fatigue caused by your disease from interfering with the things you want to do? Select Number: 10 Physical Discomfort or Pain: How confident are you that you can keep the physical discomfort or pain of your disease from interfering with the things you want to do? Select Number: 10 Emotional Distress: How confident are you that you can keep the emotional distress caused by your disease from interfering with the things you want to do? Select Number: 10 Other Symptoms or Health Problems: How confident are you that you can keep other symptoms or health problems from interfering with the things you want to do? Select Number: 10 Different Tasks and Activities: How confident are you that you can do the different tasks and activities needed to manage your health condition so as to reduce your need to see a doctor? Select Number: 10 Medication: How confident are you that you can do things other than just taking medication to reduce how much your illness affects your everyday life? Select Number: 10 Total Score:: 10 Nutrition Survey - Nutrition Survey Instructions Scoring Instructions: Scoring is as follows: Yes = 1 points. No = 0 point. Patient score that is >/=12 is considered to be at potential nutritional risk and could benefit from a referral to a registered dietitian. - Nutrition Survey Initial Have you lost >10 lbs over the past 2 months without trying?: No Are you following a special diet at home for diabetes, low fat, or low salt?: No Are you interested in meeting with a dietitian for help understanding your diet?: Yes Do you eat less than 3 meals a day?: Yes Do you eat fatty meats (ron, sausage, ribs, etc), fried foods, desserts, large amounts of salad dressings, margarine, butter, or cheese most days?: No Do you have food allergies? [Enter types in comment field]: No Do you eat in restaurants more than 3 times a week?: No Do you season food with salt, seasoning salt, or garlic salt?: Yes Do you used canned, boxed, frozen meals, or soups, seasoning packets?: Yes Total Score:: 4
--- NOTE | 2019-05-14 10:25 | PCM.CR.HP2 ---
CR - History & Physical - General Arrival date:: 05/14/19 Arrival time:: 09:45 Date of Referral:: 03/15/19 Date of CR Evaluation:: 05/14/19 Referring Physician: DR. 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 Interventions with present event:: heart routine diagnostics, found 90% and then additional 80% in the LAD Were there any complications?: none - Medications Home Medications: Ambulatory Orders Medication Instructions Recorded omega-3 fatty acids 1,000 mg 4,000 mg PO DAILY cap 03/08/19 capsule aspirin 81 mg chewable tablet 81 mg PO DAILY 03/11/19 Ticagrelor [Brilinta] 90 mg PO BID #60 tab 03/15/19 atorvastatin 20 mg tablet 20 mg PO DAILY #90 tab 04/24/19 carvedilol 6.25 mg tablet 6.25 mg PO BID #60 tab 04/24/19 - Allergies Allergies/Adverse Reactions: Allergies No Known Allergies Allergy (Verified 04/24/19 13:28) - Sleep Disorder Evaluation Hx of Sleep Apnea: No Do you snore loudly (louder than talking or can be heard through closed doors)?: No Do you often feel tired/ fatigued/ sleepy during daytime?: No Has anyone observed you stop breathing during sleep?: No History of Hypertension (for STOP score): Yes STOP Results: Negative Advanced Directives - Advanced Directives Power of Customer Service Administrator: No Living Will: No Advance Directives Information Provided: Yes Advance Directives on File: No DNR Order?:: No - MOLST See MOLST form: No Past Medical History - Past Medical Illness Medical History: Past Medical History (Last Reviewed 04/24/19 @ 15:32 by Justin Marcano MD) Atherosclerosis of coronary artery of [place] heart without angina pectoris (Acute) I25.10 3.00 x 16 mm Synergy MANASA to ostial LCx 03/14/19; 2.5 x 8 mm Synergy MANASA to mLAD 03/28/19 Elevated coronary artery calcium score (Acute) R93.1 Essential hypertension (Chronic) I10 Hyperlipidemia (Chronic) E78.5 - Past Surgical History Surgical History: Past Surgical History (Last Reviewed 04/24/19 @ 15:32 by Justin Marcano MD) History of coronary artery stent placement (Acute) Z95.5 3.00 x 16 mm Synergy MANASA to ostial LCx 03/14/19; 2.5 x 8 mm Synergy MANASA to mLAD 03/28/19 History of appendectomy Onset Date: ~2018 Z90.49 History of lithotripsy Onset Date: ~1968 Z98.890 - Family History Summary Family History: Family History (Last Reviewed 04/24/19 @ 15:32 by Justin Marcano MD) Mother Hypertension Father CVA (cerebral vascular accident) Myocardial infarction Heart disease Social History - Smoking History Smoking Status: Never smoker Hx Tobacco Use: No Hx Smoking Exposure: No - Alcohol Use Alcohol Usage: No - Substance Abuse Hx Substance Use: No - Occupation Occupation (List type of work in comments):: 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 Hours worked per day:: 8 - Hobbies, Recreation, Social Activities Hobbies: Other Recreational Activities: I am able to engage in all my recreational activities Social Environment - Status Marital Status: - Current Living Arrangements Living Environment:: Spouse - Children How many children do you have?: 5 Do any of your children live nearby?: Yes - [place], [facility] [place], [place], [place], [place], [facility] - Safety Do you feel safe in your surroundings?: Yes - Assistance Do you need any assistance at home?: none Review of Systems - Review of Systems Hints: Right click = Denies ([place]). Left click = Reports ([place]) Review of Present Symptoms: Reports: Appetite - Normal, Appetite - Special Diet - trying to eat healthier, cut back on red meat. Denies: Shortness of Breath at Rest, Shortness of Breath with Exertion, Angina, Dizziness/Lightheadedness, Fatigue, Heart Arrhythmia/Irregularities - Pain Is Patient Pain Free?: Yes Pain Location: none Pain Level: 0/10 Risk Factor Assessment - Chief Complaint Chief Complaint: PATIENT PRESENTST O CR TODAY FOR INITIAL EVALUATION FOLLWOING RECENT DIAGNOSTIC TESTING WHICH INDICATED AN INCREASED CALCIUM SCORE. FURTHER HEART CATH INIDCATED CORONARY OCCLUSION RESULTING IN CORONARY STENT PLACEMENT. - Vital Signs Temperature: 98.5 F Respiratory Rate: 14 Pulse Ox: 95 Blood Pressure: 136/69 Nailbeds:: NORMAL - Pulse Pulse Rate: 64 Pulse Rhythm: Regular - Hypertension How long have you been treated?: recent On medication(s)?: no Blood Pressure Sitting - Left Arm: 136/69 - Blood Cholesterol/Lipids Total Cholesterol (mg/dL) Goal = less than 200 mg/dL: 297 HDL Cholesterol (mg/dL) Goal = less than 40 mg/dL: 53 LDL Cholesterol (mg/dL) Goal = less than 70 mg/dL: 231 Triglycerides (mg/dL) Goal = less than 150 mg/dL: 63 - Diabetes Nutrition Referral for Diabetes: No - Obesity Height: 5 ft 7 in Weight:: 173 lb Weight in Pounds: 173.0 lbs Weight Source: Standing Scale Body Mass Index (BMI): 27.1 Nutritional Referral for Obesity: No - Physical Inactivity Physical Inactivity: Recreational activity - PHYSICALLY ACTIVE SITS <3 HOURS BUT NO REGULAR EXERCISE. - Risk Stratification Risk Guidelines: Lowest Risk: Risk Factor for Smoking, Risk Factor for Diabetes, Risk Factor for Sedentary Lifestyle, Risk Factor for Depression, Moderate Risk: Risk Factor for Dyslipidemia, Risk Factor for Obesity, Risk Factor for Hypertension - 136/69 STILL HYPERTENSIVE - For Smoking Smoking Risk Guidelines: Smoking Low Risk: None or quit greater than 6 months ago. Smoking Moderate Risk: Smoker or quit 6 months or less ago. Smoking High Risk: Smoker - For Dyslipidemia Dyslipidemia Risk Guidelines: Low Risk: Moderate Risk: High Risk: 15-25% fat 25.1-29% fat >/= 30% fat. <7% sat fat 7-9% sat fat >9% sat fat. <150 mg chol 150-299 mg chol >/= 300 mg chol. LDL <100 LDL 100-129 LDL >/= 130. Chol/HDL ratio <5.0 Chol/HDL ratio 5.0-6.0 Chol/HDL ratio >6.0. Triglycerides <100 Triglycerides 100-149 Triglycerides >/= 150 - For Diabetes Mellitus Diabetes Risk Guidelines: Diabetes Low Risk: HgA1c <6.5% and/or FBG <120. Diabetes Moderate Risk: HgA1c 6.6-7.9% and/or FBG 120-180. Diabetes High Risk: HgA1c >/= 8% and/or FBG >180 - For Obesity/Overweight Obesity/Overweight Risk Guidelines: Obesity Low Risk: BMI <25.0. Obesity Moderate Risk: BMI 25-29.9. Obesity High Risk: BMI >/= 30.0 - For Hypertension Hypertension Risk Guidelines: Hypertension Low Risk: Systolic <120 and Diastolic <80. Hypertension Moderate Risk: Systolic 120-139 and Diastolic 80-89. Hypertension High Risk: Systolic >/= 140 and Diastolic >/= 90 - For Sedentary Lifestyle Sedentary Lifestyle Risk Guidelines: Sedentary Lifestyle Low Risk: >/= 1,500 kcal/week. Sedentary Lifestyle Moderate Risk: 700-1,499 kcal/week. Sedentary Lifestyle High Risk: < 700 kcal/week - For Depression Depression Risk Guidelines: Depression Low Risk: Not clinically depressed. Depression Moderate Risk: Mildly depressed. Depression High Risk: Clinically depressed - Family History Family History: Family History (Last Reviewed 04/24/19 @ 15:32 by Justin Marcano MD) Mother Hypertension Father CVA (cerebral vascular accident) Myocardial infarction Heart disease Motivation - Motivation to Participate On a scale of 1 to 10, how prepared are you to commit to attending program?: 10 What do you see as barriers to successfully being able to complete the program?: none What do you see as the benefits of succesfully completing the program? In other words, what do you hope to get out of participating in the program?: stamina back, strength back, increase awareness of heart disease. Are there issues you are dealing with that will interfere with completing the program?: none Do you have a spouse or signficant other, family or friends who will help support you to complete the program?: yes
[2019-05-14 10:52] VITALS: BP 136/69; PULSE 64; RESP 14; TEMP 36.9; O2SAT 95; BMI 27.1
[2019-05-14 11:10] VITALS: BP 136/69; BMI 27.1
== END ==
PROVIDERS: Family Provider Family Medicine; PCP Family Medicine; Referring Provider Specialist; Visit Provider Specialist
DX: I25.10 Atherosclerotic heart disease of native coronary artery without angina pectoris (principal); E78.5 Hyperlipidemia, unspecified; I10 Essential (primary) hypertension; Z95.5 Presence of coronary angioplasty implant and graft; Z79.82 Long term (current) use of aspirin; Z79.899 Other long term (current) drug therapy

== ENCOUNTER 2019-05-31 14:15 | Outpatient (RCR) | payer MEDICARE, SELFPAY ==
[2019-05-14 10:52] VITALS: BMI 27.1
[2019-05-14 11:10] VITALS: BMI 27.1
== END 2019-06-01 23:59 ==
LOC: CR 14:15
PROVIDERS: PCP Family Medicine; Referring Provider Specialist; Visit Provider Specialist
DX: I25.10 Atherosclerotic heart disease of native coronary artery without angina pectoris (principal); Z95.5 Presence of coronary angioplasty implant and graft
CPT/HCPCS: 93798

== ENCOUNTER 2019-06-21 14:25 | Emergency (ER) | payer MEDICARE, SELFPAY ==
[2019-05-14 10:52] VITALS: BMI 27.1
[2019-06-12 07:20] VITALS: BMI 27.7
[2019-06-21 14:26] VITALS: BP 126/96; PULSE 157; RESP 19; TEMP 36.4; O2SAT 97; BMI 28.1
--- NOTE | 2019-06-21 14:38 | RAD_ITS ---
STUDY: X-RAY CHEST REASON FOR EXAM: Male, 74 years old. CHEST PAIN TECHNIQUE: Single AP portable view of the chest. COMPARISON: None. FINDINGS: EKG electrodes are seen. The lungs are clear and expanded. There is no demonstrated pleural abnormality. Normal size heart. Normal mediastinum and julio c. Normal visualized pulmonary arteries. There is atherosclerotic tortuosity of the aortic arch and descending thoracic aorta. Normal visualized thoracic spine. Normal visualized ribs, clavicles, and shoulders. There is no demonstrated abnormality of the visualized soft tissue structures of the upper abdomen. RAD/Chest 1 View (Portable) IMPRESSION: Normal x-ray examination of the chest. Electronically Signed: Eleazar Winn, at 15:23 EDT , Service support ,
--- NOTE | 2019-06-21 14:38 | EKG12_ITS ---
Test Reason : Blood Pressure : / mmHG Vent. Rate : 085 BPM Atrial Rate : 085 BPM P-R Int : 160 ms QRS Dur : 088 ms QT Int : 356 ms P-R-T Axes : 031 -15 007 degrees QTc Int : 423 ms Normal sinus rhythm Low voltage QRS Borderline ECG Confirmed by ELLIOTT TY, LUCERO ([id number]), supervising film or videotape editor MAGGIE DUENAS ([id number]) on 06/24/2019 10:51:44 AM Referred By: EDUARDO Confirmed By:LUCERO GALLAGHER MD
[2019-06-21] MEDS: Aspirin 81 MG TAB.CHEW 324 MG PO (14:46)
[2019-06-21] MEDS: 0.9% Normal Saline 1,000 ML 1000 ML IV (14:46)
[2019-06-21 14:47] VITALS: BP 130/99; PULSE 87; RESP 17; O2SAT 98
--- NOTE | 2019-06-21 15:02 | ED.VIS.GEN ---
History of Present Illness Chief Complaint: Palpitations Narrative: 74-year-old male with a history of 2 stents placed this past March 2019 presents with A. fib RVR. He is completely asymptomatic. He went to cardiac rehab today and when he was put on the monitor, they noticed he was in A. fib and sent him here. His rate was in the 170s. He did not have any sensation of palpitations, cough, or shortness of breath. No chest pain either. No recent travel. He was recently hospitalized when he had a stents placed and said that he did have a brief episode of A. fib then. Past Medical History - Allergies and Home Meds Allergies/Adverse Reactions: Allergies No Known Allergies Allergy (Verified 06/21/19 14:30) Primary Care Physician: An Fuller DO [Primary Care Provider] - Prior records reviewed: Yes Smoking Status: Never smoker Review of Systems General: Denies: Chills, Fever, Sweats Eyes: Denies: Visual changes - bilaterally, Diplopia ENT: Denies: Rhinorrhea, Sore throat Cardiovascular: Reports: Heart racing. Denies: Chest pain, Palpitations Respiratory: Denies: Dyspnea, Cough, Dyspnea on exertion Gastrointestinal: Denies: Abdominal pain, Nausea, Vomiting, Diarrhea, Melena, Hematochezia Genitourinary: Denies: Dysuria, Hematuria, Frequency Musculoskeletal: Denies: Back pain, Extremity Pain Skin: Denies: Rash, Wounds Neurological: Denies: Headache, Weakness, Numbness Physical Exam Vital Signs/Narrative: Vital Signs Temp Pulse Resp BP Pulse Ox 06/21/19 14:47 87 17 130/99 H 98 06/21/19 14:26 97.5 F L 157 H 19 H 126/96 H 97 General: Well nourished, Well developed, No Acute Distress Head: Normocephalic, Atraumatic Eyes: Perrl, EOMI ENT: Moist mucous membranes, No rhinorrhea Neck: Supple, Nontender Cardiovascular: Regular rhythm, No murmurs, Irregular, Tachycardia Respiratory: No distress, CTA bilaterally, Chest nontender Abdomen: Soft, Nontender, Nondistended, Normal bowel sounds Back: Nontender, Normal Inspection Extremities: Nontender, No edema Skin: Normal color, No rash Neurological: Alert, Oriented x3, Cranial nerves II-XII grossly intact, Normal Strength, Normal Sensation Psychological: Normal affect, Normal Mood Diagnostic/Tx/Re-eval - Rhythm Strip Rhythm Strip: A-fib Rate: 136 Ectopy: None - Medical Decision Making He was in A. fib RVR on arrival but totally asymptomatic. This was confirmed on EKG. Labs are unremarkable. Chest x-ray unremarkable. I ordered Cardizem for him but before he even received it, he spontaneously converted. He remained in sinus rhythm, also confirmed on repeat EKG. He wants to go home. I discussed his risk factors and case with Dr. Post who recommended placing him on Xarelto 5 mg twice daily and close follow-up. The patient will return if he is worse. ED Disposition - Plan for ED Patient: Disposition: Home or Assisted Living Diagnosis: New onset atrial fibrillation Instructions: Atrial Fibrillation Prescriptions: Apixaban [Eliquis] 5 mg PO BID #60 tablet Referrals: An Fuller DO [Primary Care Provider] -
[2019-06-21 15:04] LABS: Absolute Lymphocyte Count 1.49 X10^3/uL (0.83-4.51); Absolute Neutrophil Count 3.8 X10^3/uL (2.0-7.7); Basophil# 0.05 X10^3/uL; Basophil% 0.8 % (0-1); Eosinophil# 0.24 X10^3/uL; Eosinophils% 3.8 % (0-5); Hematocrit 42.5 % (40-54); Hemoglobin 14.8 g/dL (13.0-16.5); Lymphocyte # 1.49 X10^3/ul (4.0); Lymphocyte % 23.7 % (19-41); Mean Corp Hgb Conc 34.8 g/dL (32-36); Mean Corpuscular Hgb 34.7 pg (27.0-32.0); Mean Corpuscular Volume 99.8 fL (80-94); Mean Platelet Vol. 9.5 fl (6.2-12.0); Monocyte# 0.68 X10^3/uL; Monocyte% 10.8 % (0-10); NRBC Flagged by Analyzer 0 % (0-5); Neutrophil # 3.81 X10^3/uL (2.7-7.7); Neutrophil % 60.6 % (47-70); Platelet Count 267 K/mm3 (150-450); RBC Distribution Width CV 12.5 % (11.6-14.6); RBC Distribution Width SD 45.3 fl (35.1-43.9); Red Blood Count 4.26 M/mm3 (4.6-6.2); White Blood Count 6.3 K/mm3 (4.4-11.0)
[2019-06-21 15:07] LABS: Anion Gap 6 (5-15); BUN 21 mg/dL (7-18); BUN/Creat Ratio 23.3 RATIO (10-20); Calcium,Total 8.9 mg/dL (8.5-10.1); Chloride 110 mmol/L (98-107); EST Glomerular Filtration Rate 88 mL/min (>60); Est Glom Filt Rate - Afr Amer 106 mL/min (>60); Estimated Creatinine Clearance 67.32 ml/min; Glucose 92 mg/dL (74-106); Potassium 4.2 mmol/L (3.5-5.1); Sodium Level 142 mmol/L (136-145)
[2019-06-21 15:28] LABS: BNP,B-Type NATRIURETIC PEPTIDE 58.4 pg/mL (0-100)
[2019-06-21 15:52] VITALS: BP 146/95; PULSE 75; RESP 18; O2SAT 98
== END 2019-06-21 15:55 | disposition home or self-care (01) ==
PROVIDERS: Emergency Provider Emergency Medicine; PCP Family Medicine
DX: I48.91 Unspecified atrial fibrillation (principal); Z95.5 Presence of coronary angioplasty implant and graft; Z79.82 Long term (current) use of aspirin; Z79.899 Other long term (current) drug therapy
CPT/HCPCS: 71045; 80048; 83880; 84484; 85025; 93005; 96360; 99285; J7030; A4216

== ENCOUNTER 2019-07-01 14:15 | Outpatient (RCR) | payer MEDICARE, SELFPAY ==
[2019-05-14 10:52] VITALS: BMI 27.1
[2019-05-14 11:10] VITALS: BMI 27.1
--- NOTE | 2019-06-12 07:06 | PCM.CR.ITP ---
Diagnosis - General Information Admitting Diagnosis: PCI w/coronary stent placement Personal Learning Style:: Audio/Visual, Written Barriers to Learning: Vision Impairment Stage of change r/t lifestyle modifications:: Action Gave educational material for:: Treating Heart Disease, Emotions & Heart Disease, Stress Management & Relaxation, Sleep Disorders & Heart Disease, How The Heart Works, What it means to have Heart Disease, How Coronary Artery Disease is Diagnosed, Heart Procedures, What Heart Medications Do, Risk Factors & Modifications, Living an Active Life, Nutrition - Education/Goals Individual Counseling: Initial Assessment: Abnormal Cholesterol Levels, High Blood Pressure Cardiac Rehabilitation Goals: 1. Maintain the individual as the primary focus of care. 2. To improve the patient's quality of life. 3. Identification of cardiac risk factors and provide cardiac risk factor management. 4. Enhance the psychosocial status of the patient. 5. Reconditioning enough to allow the patient to resume customary activities. 6. Control symptoms of cardiac disease Personal Goals: Initial Assessment: Improve energy level - 3, Improve muscle strength and endurance - 3, Improve diet and eating habits (eat healthier) - 3, Control risk factors (learn risk factor modification) - 3 Scale for measuring improvement of personal goals: Enter appropriate number in Comments. 2 = Unchanged. 3 = Slightly Better. 4 = Moderate Improvement. 5 = Met my Goal - Diagnosis & Disease Process Outcomes/Goals: Pt IDs own risk factors & lifestyle modifications by Session 10, Verbalizes symptoms of angina & response by session 3., Pt independently manages Plan/Interventions: Assist Pt to ID & engage in lifestyle modification to reduce CVD risk, Instruct on individual risk factors, Review symptoms of angina & emergency actions, Review secondary diagnosis & identify educational needs. 30 day Reassessments:: Progressing - Safety Referral to Physical Therapy: No Referral to [facility] Case Management: No Fall Risk Assessed:: Yes Assistive Devices:: None Exercise - 30-day Assessment - Visit Date of Eval: 06/12/19 Session #:: 10 - Physician Prescribed Exercise Modalities: Treadmill, Airdyne, NuStep Frequency: 3x/week for 12 weeks [36 sessions] Intensity: 60-80% of age predicted maximum heart rate reserve Current METSs:: 4.5 increase from 3.5 Target Heart Rate:: 95-124 Current RPE:: 10-11 Maximum Excercise HR:: 118 Resting Blood Pressure: 160/88 - uncontrolled Maximum Exercise Blood Pressure: 180/90 EKG Type: NSR to sinus tachycardia with rare PVCs, one 8 beat run of atrial tach - Outcomes & Goals Goals:: Verbalizes understanding of THR, RPE & goal METS by session 6, Documents in home exercise log/reports 30 min aerobic 5 day/wk by DC, Demonstrates accurate pulse taking by DC - Intervention & Plan Exercise Program Goals: Instruct on personal THR & RPE, Instruct on MET level & personal MET goal, Show patient to take own pulse /validate performance until accurate, Instruct on home exercise - 30-day Reassessments 30 day Reassessments:: Progressing - Physical Activity Home Exercise Physical Activity - Home Exercise: Safe Exercise, Warm-up, Self-monitoring, Cool-Down, Home Exercise > 30 min Daily, Sitting Time <3 hours/daily - Outcomes & Goals Outcomes/Goals: Demonstrates correct Warm-up/exercise Cool-Down (S3) if = 2.5 METs, Verbalizes symptoms of exercise intolerance by Session 3 (S3), Demonstrate safe equipment use (S3) & follows exercise prescrition (6) - Intervention & Plan Plan/Intervention: Instruct warm-up & cool-down if exercising at > 2 METs, Instruct on symptoms of exercise intolerance & actions to take, Instruct & monitor on saf, Assess intial functional capacity & safety risk - 30-day Reassessments 30 day Reassessments:: Progressing Nutrition - 30-Day Assessment - Program Goals Nutrition Program Goals: LDL <100 optimal. 100 - 129 Near optimal. 130 - 159 Borderline High. 160 - 189 High. Total Cholesterol <200 desirable. 200 - 239 Borderline High. >/= 240 High. HDL < 40 Low >/=60 High. Triglycerides <150 desirable. <199 optimal. VlDL 5 - 40. HgbA1C <7%. BMI <25 - Visit Date of Assessment:: 06/12/19 Session #:: 10 - Cholesterol/Lipids Triglycerides (mg/dL): 63 - 10/31/2018 Total Cholesterol (mg/dL): 297 LDL Cholesterol (mg/dL): 231 HDL Cholesterol (mg/dL): 53 Determine presence & major risk factors that modify LDL goal: Hypertension or hypertensive medication, Age men > 45 years; women >/= 55 years Outcomes/Goals: Pt IDs own risk factors & lifestyle modifications by Session 10, Verbalizes symptoms of angina & response by session 3., Pt independently manages Intervention/Plan: Instruct on personal lipid levels & lipid goals/NCEP guidelines, Instruct on cholesterol Referral to dietitian:: No - insurance does not cover services - Diabetes (Other Core Measures) Diabetes Type: Not Applicable - Weight Mgt (Other Care) Not Applicable: Yes Height: 5 ft 7 in Weight:: 177 lb BMI: 27.7 Diagnosis Overweight/Obesity BMI> 30% ICD-10 E66: No Diagnosis High BMI/Morbid Obesity BMI> 35% ICD-10 Z68: No Outcomes/Goals: Pt sets, maintains & shows weight loss goal & trend during rehab Intervention/Plan: Instruct on ideal BMI & set weight loss goal w/patient, Assist pt to ID & incorporate diet changes for weight loss by S9 30 day Reassessments:: Progressing - Healthy Eating Habits Will attend diet classes:: Yes Outcomes/Goals:: Consume diet rich in vegs,fruits,whole grain/high fiber,fish,lean meat, Limit sat/trans fats,cholesterol & added salts & sugars Intervention/Plan:: Assess current eating habits 30-day Reassessments:: Progressing - Education Gave educational materials for:: Healthy eating Medical- 30-Day Assessment - Visit Date of Eval: 06/12/19 Session #:: 10 - Medication Compliance Preventative Medication(s):: Aspirin, Ticagrelor/P2Y12 inhibitor, Statin/lipid, Beta humble H/O mental health issues: depression, anxiety, or addiction?: No Doesn?t believe in the benefits of treatment?: No Believes medications are unnecessary or harmful?: No Has a concern about medication side effects?: No Expresses concern over the cost of medications?: No Outcomes/Goals: Verbalizes medications,desired effect & common side effects @ DC, Pt self-reports following medication regimen, Keeps card in wallet w/medications listed by DC Interventions/plans: Instruct on medication effects & side effects, Review medication list w/patient every two weeks, Instruct importance of taking meds as ordered & assist problem solving 30-day Reassessments:: Progressing - Tobacco Use Tobacco Use: Non-smoker - Hypertension Hypertension Diagnosis:: Hypertension ICD-10 I10 Resting Blood Pressure:: 160/88 - uncontrolled [place] [employer] Hypertension Guidelines: [place] [employer] Hypertension Guidelines. Normal BP Less than 120/80. Elevated BP 120/80. Hypertension Stage 1: BP 130-139/80-89. Hypertesnion Stage 2: BP 140 or higher/90 or higher. Hypertension Crisis: BP higher than 180/120 Peak Exercise Blood Pressure:: 180/90 Outcomes/Goals: Able to verbalize/achieve optimal blood pressure <130/80, Incorporates diet changes & exercise for blood pressure control by DC Interventions/plan: Instruct on optimal blood pressure, hypertension & medications, Instruct on effects of sodium, alcohol, stress, exercise &hypertension 30 day Reassessments:: Not Met - Tobacco Cessation Referral Smoking Cessation Referral:: No Education Schedule Given:: Yes Psychosocial - 30-Day Assess - VIsit Date of Eval: 06/12/19 Session #:: 10 Not Applicable: Yes History of previous Mental disease:: No - Target Goals Target Goals: Assess presence or absence of depression. Using a valid screening tool, maximizes coping skills. Positive support system - Psychosocial Test Tool Used:: Hyacinth De La Rosa QOL Cardiac, PHQ-9 Questionnaire phq-9 Severity: Severity. 1-4 Minimal Depression. 5-9 Mild Depression. 10-14 Moderate Depression. 15-19 Moderately Sever Depression. 20-27 Severe Depression. Rule: - Referral to Behavioral Health PS - Interventions: Yes Attend Stress Management Classes, No Referral to Behavioral Health if PHQ-9 score >9:, No Referral to [facility], No Referral to Physician if PHQ-9 if score is 5-9: - Outcomes/Goals: See list Psychosocial Outcomes/Goals:: ID's personal stressors & 2 strategies to manage stress by discharge - Intervention/Plan: See List Interventions/Plan:: Assess stressors,coping strategies & signs of derpression on admission, Instruct patient to recognize signs & symptoms of depression, Instruct patient to recog - 30-day Reassessments: 30 day Reassessments:: Progressing Patient Health Questionnaire 30-Day Re-eval Assessment 1. Little interest or pleasure in doing things: Not at all 2. Feeling down, depressed, or hopeless: Not at all 3. Trouble falling or staying asleep, or sleeping too much: Not at all 4. Feeling tired or having little energy: Not at all 5. Poor appetite or overeating: Not at all 6. Feeling bad about yourself -- or that you are a failure or have let yourself or your family down: Not at all 7. Trouble concentrating on things, such as reading the newspaper or watching television: Not at all 8. Moving or speaking so slowly that other people could have noticed. Or the opposite - being so fidgety or restless that you have been moving around a lot more than usual: Not at all 9. Thoughts that you would be better off , or of hurting yourself in some way: Not at all Total Score: 0 Self-Efficacy 30-Day Re-eval Assessment We would like to know how confident you are in doing certain activities. Please select your confidence level for:: Select your confidence level for the following using the scale 1-10 where 1 is not at all confident and 10 is totally confident. Your score is the average of all 6 responses. Fatigue: How confident are you that you can keep the fatigue caused by your disease from interfering with the things you want to do? Select Number: 10 Physical Discomfort or Pain: How confident are you that you can keep the physical discomfort or pain of your disease from interfering with the things you want to do? Select Number: 10 Emotional Distress: How confident are you that you can keep the emotional distress caused by your disease from interfering with the things you want to do? Select Number: 10 Other Symptoms or Health Problems: How confident are you that you can keep other symptoms or health problems from interfering with the things you want to do? Select Number: 10 Different Tasks and Activities: How confident are you that you can do the different tasks and activities needed to manage your health condition so as to reduce your need to see a doctor? Select Number: 10 Medication: How confident are you that you can do things other than just taking medication to reduce how much your illness affects your everyday life? Select Number: 10 Total Score:: 10
[2019-06-12 07:20] VITALS: BP 160/88; BP 180/90; BMI 27.7
--- NOTE | 2019-06-21 14:03 | EKG12_ITS ---
Test Reason : RHYTHM Blood Pressure : / mmHG Vent. Rate : 149 BPM Atrial Rate : 100 BPM P-R Int : 000 ms QRS Dur : 084 ms QT Int : 290 ms P-R-T Axes : 000 027 002 degrees QTc Int : 456 ms Atrial fibrillation Low voltage QRS Abnormal ECG When compared with ECG of 29-MAR-2019 05:17, Atrial fibrillation has replaced Sinus rhythm Vent. rate has increased BY 85 BPM Confirmed by ELLIOTT TY, LUCERO ([id number]), editor index KANDACE MESSINA ([id number]) on 06/25/2019 10:02:22 AM Referred By: Justin Marcano Confirmed By:LUCERO GALLAGHER MD
--- NOTE | 2019-06-21 14:11 | EKG12_ITS ---
Test Reason : Blood Pressure : / mmHG Vent. Rate : 136 BPM Atrial Rate : 127 BPM P-R Int : 000 ms QRS Dur : 082 ms QT Int : 294 ms P-R-T Axes : 000 009 002 degrees QTc Int : 442 ms Atrial fibrillation with rapid ventricular response Low voltage QRS Abnormal ECG Confirmed by ELLIOTT TY, LUCERO ([id number]), legal editor MAGGIE DUENAS ([id number]) on 06/24/2019 10:51:56 AM Referred By: Justin Marcano Confirmed By:LUCERO GALLAGHER MD
== END 2019-07-02 23:59 ==
LOC: CR 14:15
PROVIDERS: PCP Family Medicine; Referring Provider Specialist; Visit Provider Specialist
DX: I25.10 Atherosclerotic heart disease of native coronary artery without angina pectoris (principal); Z95.5 Presence of coronary angioplasty implant and graft; I48.91 Unspecified atrial fibrillation
CPT/HCPCS: 93005; 93798

== ENCOUNTER 2019-07-03 09:51 | Outpatient (RCR) | payer MEDICARE, SELFPAY ==
[2019-06-12 07:20] VITALS: BMI 27.7
[2019-06-26 10:02] VITALS: BMI 28.0
[2019-07-03 00:49] VITALS: BP 160/88; BP 180/90
--- NOTE | 2019-07-05 07:57 | PCM.CR.ITP ---
Exercise - Initial Assessment - Visit Date of Eval: 07/05/19 - With obvious neccessary interupption in the delivery of CR, the patient's program is on hold due to the coronovirus. The CR program has been closed for patient safety reasons.
== END 2019-08-01 23:59 ==
LOC: CR 09:51
PROVIDERS: PCP Family Medicine; Referring Provider Specialist; Visit Provider Specialist
DX: I48.91 Unspecified atrial fibrillation (principal); I25.10 Atherosclerotic heart disease of native coronary artery without angina pectoris; Z95.5 Presence of coronary angioplasty implant and graft
CPT/HCPCS: 93798

== ENCOUNTER 2019-08-30 14:15 | Outpatient (RCR) | payer MEDICARE, SELFPAY ==
[2019-06-12 07:20] VITALS: BMI 27.7
[2019-06-26 10:02] VITALS: BMI 28.0
[2019-08-02 00:16] VITALS: BP 160/88; BP 180/90
--- NOTE | 2019-08-02 13:34 | CR.ITP_ITS ---
Diagnosis - General Information Admitting Diagnosis: PCI with coronary stent Personal Learning Style:: Audio/Visual, Written Stage of change r/t lifestyle modifications:: Action Gave educational material for:: Treating Heart Disease, Emotions & Heart Disease, Stress Management & Relaxation, Sleep Disorders & Heart Disease, How The Heart Works, What it means to have Heart Disease, How Coronary Artery Disease is Diagnosed, Heart Procedures, What Heart Medications Do, Risk Factors & Modifications, Living an Active Life, Nutrition - Education/Goals Cardiac Rehabilitation Goals: 1. Maintain the individual as the primary focus of care. 2. To improve the patient's quality of life. 3. Identification of cardiac risk factors and provide cardiac risk factor management. 4. Enhance the psychosocial status of the patient. 5. Reconditioning enough to allow the patient to resume customary activities. 6. Control symptoms of cardiac disease Scale for measuring improvement of personal goals: Enter appropriate number in Comments. 2 = Unchanged. 3 = Slightly Better. 4 = Moderate Improvement. 5 = Met my Goal - Diagnosis & Disease Process Outcomes/Goals: Pt IDs own risk factors & lifestyle modifications by Session 10, Verbalizes symptoms of angina & response by session 3., Pt independently manages, Other Additional Outcomes/Goals: Plan/Interventions: Assist Pt to ID & engage in lifestyle modification to reduce CVD risk, Instruct on individual risk factors, Review symptoms of angina & emergency actions, Review secondary diagnosis & identify educational needs., Other see comment 30 day Reassessments:: Progressing 30 day Reassessments:: Progressing 30 day Reassessments:: Progressing - Safety Referral to Physical Therapy: No Referral to [facility] Case Management: No Fall Risk Assessed:: Yes Assistive Devices:: None Exercise - 60-day Assessment - Visit Date of Eval: 08/02/19 Session #:: 20 Comments:: Pt was on hold for COVID 19 precaution. Pt is now resuming rehab. - Physician Prescribed Exercise Modalities: Treadmill, Airdyne, NuStep Frequency: 3x/week for 12 weeks [36 sessions] Intensity: 60-80% of age predicted maximum heart rate reserve Current METSs:: 6.5 Target Heart Rate:: 95-124 Current RPE:: 11-12 Maximum Excercise HR:: 141 Resting Blood Pressure: 128/66 Maximum Exercise Blood Pressure: 172/80 EKG Type: NSR - Outcomes & Goals Goals:: Verbalizes understanding of THR, RPE & goal METS by session 6, Documents in home exercise log/reports 30 min aerobic 5 day/wk by DC, Demonstrates ac curate pulse taking by DC, Other additional outcome/goals: see below - Intervention & Plan Exercise Program Goals: Instruct on personal THR & RPE, Instruct on MET level & personal MET goal, Show patient to take own pulse /validate performance until accurate, Instruct on home exercise, Other additional plan/int - 30-day Reassessments 30 day Reassessments:: Progressing - Physical Activity Home Exercise Physical Activity - Home Exercise: Safe Exercise, Warm-up, Self-monitoring, Inter Fold Roll Cutter l-Down, Home Exercise > 30 min Daily, Sitting Time <3 hours/daily - Intervention & Plan Plan/Intervention: Instruct warm-up & cool-down if exercising at > 2 METs, Instruct on symptoms of exercise intolerance & actions to take, Instruct & monitor on saf, Assess intial functional capacity & safety risk, Other See below - 30-day Reassessments 30 day Reassessments:: Progressing Nutrition - 60-Day Assessment - Program Goals Nutrition Program Goals: LDL <100 optimal. 100 - 129 Near optimal. 130 - 159 Borderline High. 160 - 189 High. Total Cholesterol <200 desirable. 200 - 239 Borderline High. >/= 240 High. HDL < 40 Low >/=60 High. Triglycerides <150 desirable. <199 optimal. VlDL 5 - 40. HgbA1C <7%. BMI <25 - Visit Date of Assessment:: 08/02/19 Session #:: 20 - Cholesterol/Lipids Determine presence & major risk factors that modify LDL goal: Cigarette smoking, Hypertension or hypertensive medication, Low HDL cholesterol <40 mg/dL*, Family history of premature CHD in Male < 55 years: female <65 yearsFa, Age men > 45 years; women >/= 55 years Outcomes/Goals: Pt IDs own risk factors & lifestyle modifications by Session 10, Verbalizes symptoms of angina & response by session 3., Pt independently manages, Other Additional Outcomes/Goals: Intervention/Plan: Advocate for lipid panel cholesterol medication if applicable, Instruct on personal lipid levels & lipid goals/NCEP guidelines, Instruct on cholesterol, Other additional plan/int Referral to dietitian:: No 30-day Reassessments:: Progressing - Weight Mgt (Other Care) Height: 5 ft 7 in Weight:: 80.739 kg BMI: 27.8 Outcomes/Goals: Pt sets, maintains & shows weight loss goal & trend during rehab, Other additional outcomes/goals Intervention/Plan: Instruct on ideal BMI & set weight loss goal w/patient, Assist pt to ID & incorporate diet changes for weight loss by S9, Refer to Structured Weight Loss program as appropriate, Encourage goal of using 250- 300dcal per session for weight loss, Other additional plan/interventions 30 day Reassessments:: Progressing - Healthy Eating Habits Will attend diet classes:: Yes Outcomes/Goals:: Consume diet rich in vegs,fruits,whole grain/high fiber,fish,lean meat, Limit sat/trans fats,cholesterol & added salts & sugars, Other additional outcome/goals: Intervention/Plan:: Assess current eating habits, Other Additional plan/interventions 30-day Reassessments:: Progressing - Education Gave educational materials for:: Signs & symptoms of hypoglycemia, Signs & symptoms of hyperglycemia, Relate diabetes to coronary artery disease, Healthy eating Medical- 60-Day Assessment - Visit Date of Eval: 08/02/19 Session #:: 20 - Medication Compliance Preventative Medication(s):: Aspirin, Ticagrelor/P2Y12 inhibitor, Statin/lipid, Beta humble H/O mental health issues: depression, anxiety, or addiction?: No Doesn?t believe in the benefits of treatment?: No Believes medications are unnecessary or harmful?: No Has a concern about medication side effects?: No Expresses concern over the cost of medications?: No Outcomes/Goals: Verbalizes medications,desired effect & common side effects @ DC, Pt self-reports following medication regimen, Keeps card in wallet w/medications listed by DC, Other additional outcome/goals: Interventions/plans: Instruct on medication effects & side effects, Review medication list w/patient every two weeks, Instruct importance of taking meds as ordered & assist problem solving, Other additional 30-day Reassessments:: Progressing - Tobacco Use Tobacco Use: Non-smoker - Hypertension Hypertension Diagnosis:: Hypertension ICD-10 I10 Resting Blood Pressure:: 128/66 [place] [employer] Hypertension Guidelines: [place] [employer] Hypertension Guidelines. Normal BP Less than 120/80. Elevated BP 120/80. Hypertension Stage 1: BP 130-139/80-89. Hypertesnion Stage 2: BP 140 or higher/90 or higher. Hypertension Crisis: BP higher than 180/120 Peak Exercise Blood Pressure:: 172/80 Outcomes/Goals: Able to verbalize/achieve optimal blood pressure <130/80, Incorporates diet changes & exercise for blood pressure control by DC, Other additional outcomes/goals Interventions/plan: Instruct on optimal blood pressure, hypertension & medications, Instruct on effects of sodium, alcohol, stress, exercise &hypertension, Other additional plan/interventions 30 day Reassessments:: Progressing - Tobacco Cessation Referral Smoking Cessation Referral:: No Individual Education/Counseling:: No Education Schedule Given:: Yes Psychosocial - 60-Day Assess - VIsit Date of Eval: 08/02/19 Session #:: 20 Not Applicable: No - Target Goals Target Goals: Assess presence or absence of depression. Using a valid screening tool, maximizes coping skills. Positive support system - Psychosocial Test Tool Used:: [employer] KAYAK QOL Cardiac, PHQ-9 Questionnaire phq-9 Severity: Severity. 1-4 Minimal Depression. 5-9 Mild Depression. 10-14 Moderate Depression. 15-19 Moderately Sever Depression. 20-27 Severe Depression. Rule: - Referral to Behavioral Health PS - Interventions: Yes Attend Stress Management Classes, No Referral to Behavioral Health if PHQ-9 score >9:, No Referral to [facility], No Referral to Physician if PHQ-9 if score is 5-9: - Outcomes/Goals: See list Psychosocial Outcomes/Goals:: ID's personal stressors & 2 strategies to manage stress by discharge, Other Additional outcome/goals: - Intervention/Plan: See List Interventions/Plan:: Assess stressors,coping strategies & signs of derpression on admission, Instruct/assist pt to develop coping & personal stress Mgt strat egies, Refer to Behavioral Health if appropriate, Refer to Physician if appropriate, Instruct patient to recognize signs & symptoms of depression, Instruct patient to recog, Other additional plan/intervention - 30-day Reassessments: 30 day Reassessments:: Progressing Patient Health Questionnaire 60-Day Re-eval Assessment 1. Little interest or pleasure in doing things: Not at all 2. Feeling down, depressed, or hopeless: Not at all 3. Trouble falling or staying asleep, or sleeping too much: Not at all 4. Feeling tired or having little energy: Not at all 5. Poor appetite or overeating: Not at all 6. Feeling bad about yourself -- or that you are a failure or have let yourself or your family down: Not at all 7. Trouble concentrating on things, such as reading the newspaper or watching television: Not at all 8. Moving or speaking so slowly that other people could have noticed. Or the opposite - being so fidgety or restless that you have been moving around a lot more than usual: Not at all 9. Thoughts that you would be better off , or of hurting yourself in some way: Not at all Total Score: 0 Self-Efficacy 60-Day Re-eval Assessment We would like to know how confident you are in doing certain activities. Please select your confidence level for:: Select your confidence level for the following using the scale 1-10 where 1 is not at all confident and 10 is totally confident. Your score is the average of all 6 responses. Fatigue: How confident are you that you can keep the fatigue caused by your disease from interfering with the things you want to do? Select Number: 10 Physical Discomfort or Pain: How confident are you that you can keep the physical discomfort or pain of your disease from interfering with the things you want to do? Select Number: 10 Emotional Distress: How confident are you that you can keep the emotional distress caused by your disease from interfering with the things you want to do? Select Number: 10 Other Symptoms or Health Problems: How confident are you that you can keep other symptoms or health problems from interfering with the things you want to do? Select Number: 10 Different Tasks and Activities: How confident are you that you can do the d ifferent tasks and activities needed to manage your health condition so as to reduce your need to see a doctor? Select Number: 10 Medication: How confident are you that you can do things other than just taking medication to reduce how much your illness affects your everyday life? Select Number: 10 Total Score:: 10
[2019-08-02 13:42] VITALS: BP 128/66; BP 172/80; BMI 27.8
--- NOTE | 2019-08-20 10:46 | PCM.CR.ITP ---
Exercise - 90-day Assessment - Visit Date of Eval: 08/20/19 Session #:: 25 Comments:: Suspension of Cardiac Rehab services resulted from 07/04/2019 through 08/05/2019 as a result of Covid-19 closure of the program under the Dept of [facility] and [place] [facility]. - Physician Prescribed Exercise Modalities: Treadmill, Airdyne, NuStep Frequency: 3x/week for 12 weeks [36 sessions] Intensity: 60-80% of age predicted maximum heart rate reserve Current METSs:: 6.5 Target Heart Rate:: 95-124 Current RPE:: 11-13 Maximum Excercise HR:: 136 Resting Blood Pressure: 122/76 Maximum Exercise Blood Pressure: 156/80 EKG Type: NST to sinus tahcycardia with occasional PVCs, rare PAC, ventricular bigemi Current Physical Activity or Exercising minutes: 35-45 - Outcomes & Goals Goals:: Verbalizes understanding of THR, RPE & goal METS by session 6, Documents in home exercise log/reports 30 min aerobic 5 day/wk by DC, Demonstrates accurate pulse taking by DC - Intervention & Plan Exercise Program Goals: Instruct on personal THR & RPE, Instruct on MET level & personal MET goal, Show patient to take own pulse /validate performance until accurate, Instruct on home exercise - 30-day Reassessments 30 day Reassessments:: Progressing - Physical Activity Home Exercise Physical Activity - Home Exercise: Safe Exercise, Warm-up, Self-monitoring, Cool-Down, Home Exercise > 30 min Daily, Sitting Time <3 hours/daily - Outcomes & Goals Outcomes/Goals: Demonstrates correct Warm-up/exercise Cool-Down (S3) if = 2.5 METs, Verbalizes symptoms of exercise intolerance by Session 3 (S3), Demonstrate safe equipment use (S3) & follows exercise prescrition (6) - Intervention & Plan Plan/Intervention: Instruct warm-up & cool-down if exercising at > 2 METs, Instruct on symptoms of exercise intolerance & actions to take, Instruct & monitor on saf, Assess intial functional capacity & safety risk - 30-day Reassessments 30 day Reassessments:: Progressing Nutrition - 90-Day Assessment - Program Goals Nutrition Program Goals: LDL <100 optimal. 100 - 129 Near optimal. 130 - 159 Borderline High. 160 - 189 High. Total Cholesterol <200 desirable. 200 - 239 Borderline High. >/= 240 High. HDL < 40 Low >/=60 High. Triglycerides <150 desirable. <199 optimal. VlDL 5 - 40. HgbA1C <7%. BMI <25 Patient has diagnosis of Hyperlipidemia (ICD E78)?: Yes - Visit Date of Assessment:: 08/20/19 Session #:: 26 - Cholesterol/Lipids Determine presence & major risk factors that modify LDL goal: Hypertension or hypertensive medication, Age men > 45 years; women >/= 55 years Outcomes/Goals: Pt IDs own risk factors & lifestyle modifications by Session 10, Verbalizes symptoms of angina & response by session 3., Pt independently manages Intervention/Plan: Instruct on personal lipid levels & lipid goals/NCEP guidelines, Instruct on cholesterol Referral to dietitian:: No 30-day Reassessments:: Progressing - Diabetes (Other Core Measures) Diabetes Type: Not Applicable - Weight Mgt (Other Care) Not Applicable: Yes Height: 5 ft 7 in Weight:: 180 lb BMI: 28.1 Diagnosis Overweight/Obesity BMI> 30% ICD-10 E66: No Diagnosis High BMI/Morbid Obesity BMI> 35% ICD-10 Z68: No Outcomes/Goals: Pt sets, maintains & shows weight loss goal & trend during rehab Intervention/Plan: Instruct on ideal BMI & set weight loss goal w/patient, Encourage goal of using 250-300dcal per session for weight loss 30 day Reassessments:: Progressing - Healthy Eating Habits Will attend diet classes:: Yes Outcomes/Goals:: Consume diet rich in vegs,fruits,whole grain/high fiber,fish,lean meat, Limit sat/trans fats,cholesterol & added salts & sugars Intervention/Plan:: Assess current eating habits 30-day Reassessments:: Progressing - Education Gave educational materials for:: Healthy eating Medical- 90-Day Assessment - Visit Date of Eval: 08/20/19 Session #:: 26 - Medication Compliance Preventative Medication(s):: Aspirin, Ticagrelor/P2Y12 inhibitor, Statin/lipid, Beta humble H/O mental health issues: depression, anxiety, or addiction?: No Doesn?t believe in the benefits of treatment?: No Believes medications are unnecessary or harmful?: No Has a concern about medication side effects?: No Expresses concern over the cost of medications?: No Outcomes/Goals: Verbalizes medications,desired effect & common side effects @ DC, Pt self-reports following medication regimen, Keeps card in wallet w/medications listed by DC Interventions/plans: Instruct on medication effects & side effects, Review medication list w/patient every two weeks, Instruct importance of taking meds as ordered & assist problem solving 30-day Reassessments:: Progressing - Tobacco Use Tobacco Use: Non-smoker - Hypertension Hypertension Diagnosis:: Hypertension ICD-10 I10 Resting Blood Pressure:: 122/76 [place] [employer] Hypertension Guidelines: [place] [employer] Hypertension Guidelines. Normal BP Less than 120/80. Elevated BP 120/80. Hypertension Stage 1: BP 130-139/80-89. Hypertesnion Stage 2: BP 140 or higher/90 or higher. Hypertension Crisis: BP higher than 180/120 Peak Exercise Blood Pressure:: 156/80 Outcomes/Goals: Able to verbalize/achieve optimal blood pressure <130/80, Incorporates diet changes & exercise for blood pressure control by DC Interventions/plan: Instruct on optimal blood pressure, hypertension & medications, Instruct on effects of sodium, alcohol, stress, exercise &hypertension 30 day Reassessments:: Progressing - Tobacco Cessation Referral Smoking Cessation Referral:: No Individual Education/Counseling:: No Education Schedule Given:: Yes Psychosocial - 90-Day Assess - VIsit Date of Eval: 08/20/19 Session #:: 26 Not Applicable: Yes History of previous Mental disease:: No - Target Goals Target Goals: Assess presence or absence of depression. Using a valid screening tool, maximizes coping skills. Positive support system - Psychosocial Test Tool Used:: Hyacinth De [place] [employer] QOL Cardiac, PHQ-9 Questionnaire phq-9 Severity: Severity. 1-4 Minimal Depression. 5-9 Mild Depression. 10-14 Moderate Depression. 15-19 Moderately Sever Depression. 20-27 Severe Depression. Rule: - Referral to Behavioral Health PS - Interventions: Yes Attend Stress Management Classes, No Referral to Behavioral Health if PHQ-9 score >9:, No Referral to [facility], No Referral to Physician if PHQ-9 if score is 5-9: - Outcomes/Goals: See list Psychosocial Outcomes/Goals:: ID's personal stressors & 2 strategies to manage stress by discharge - Intervention/Plan: See List Interventions/Plan:: Assess stressors,coping strategies & signs of derpression on admission, Instruct/assist pt to develop coping & personal stress Mgt strategies, Instruct patient to recognize signs & symptoms of depression, Instruct patient to recog - 30-day Reassessments: 30 day Reassessments:: Progressing Patient Health Questionnaire 90-Day Re-eval Assessment 1. Little interest or pleasure in doing things: Not at all 2. Feeling down, depressed, or hopeless: Not at all 3. Trouble falling or staying asleep, or sleeping too much: Not at all 4. Feeling tired or having little energy: Not at all 5. Poor appetite or overeating: Not at all 6. Feeling bad about yourself -- or that you are a failure or have let yourself or your family down: Not at all 7. Trouble concentrating on things, such as reading the newspaper or watching television: Not at all 8. Moving or speaking so slowly that other people could have noticed. Or the opposite - being so fidgety or restless that you have been moving around a lot more than usual: Not at all 9. Thoughts that you would be better off , or of hurting yourself in some way: Not at all How difficult have these problems made it for you to do your work, take care of things at home, or get along with other people?: Not difficult at all Total Score: 0 Self-Efficacy 90-Day Re-eval Assessment We would like to know how confident you are in doing certain activities. Please select your confidence level for:: Select your confidence level for the following using the scale 1-10 where 1 is not at all confident and 10 is totally confident. Your score is the average of all 6 responses. Fatigue: How confident are you that you can keep the fatigue caused by your disease from interfering with the things you want to do? Select Number: 10 Physical Discomfort or Pain: How confident are you that you can keep the physical discomfort or pain of your disease from interfering with the things you want to do? Select Number: 10 Emotional Distress: How confident are you that you can keep the emotional distress caused by your disease from interfering with the things you want to do? Select Number: 10 Other Symptoms or Health Problems: How confident are you that you can keep other symptoms or health problems from interfering with the things you want to do? Select Number: 10 Different Tasks and Activities: How confident are you that you can do the different tasks and activities needed to manage your health condition so as to reduce your need to see a doctor? Select Number: 10 Medication: How confident are you that you can do things other than just taking medication to reduce how much your illness affects your everyday life? Select Number: 10 Total Score:: 10
[2019-08-20 10:55] VITALS: BP 122/76; BP 156/80; BMI 28.1
== END 2019-09-01 23:59 ==
LOC: CR 14:15
PROVIDERS: PCP Family Medicine; Referring Provider Specialist; Visit Provider Specialist
DX: I25.10 Atherosclerotic heart disease of native coronary artery without angina pectoris (principal); Z95.5 Presence of coronary angioplasty implant and graft
CPT/HCPCS: 93798

== ENCOUNTER 2019-09-16 14:15 | Outpatient (RCR) | payer MEDICARE, SELFPAY ==
[2019-06-26 10:02] VITALS: BMI 28.0
[2019-08-20 10:55] VITALS: BMI 28.1
[2019-09-02 00:26] VITALS: BP 122/76; BP 156/80
--- NOTE | 2019-09-11 08:05 | PCM.CR.ITP ---
Exercise - Final/Discharge - Visit Date of Eval: 09/11/19 Session #:: 34 - Physician Prescribed Exercise Modalities: Treadmill, Airdyne, NuStep Frequency: 3x/week for 12 weeks [36 sessions] Intensity: 60-80% of age predicted maximum heart rate reserve Current METSs:: 6.5 Target Heart Rate:: 95-124 Target RPE 12-16:: Current RPE:: 11-12 Maximum Excercise HR:: 138 Resting Blood Pressure: 118/62 Maximum Exercise Blood Pressure: 154/70 EKG Type: NSR to sinus tachycardia with rarte PVCs. One ventricular couplet. - Outcomes & Goals Goals:: Verbalizes understanding of THR, RPE & goal METS by session 6, Documents in home exercise log/reports 30 min aerobic 5 day/wk by DC, Demonstrates accurate pulse taking by DC - Intervention & Plan Exercise Program Goals: Instruct on personal THR & RPE, Instruct on MET level & personal MET goal, Show patient to take own pulse /validate performance until accurate, Instruct on home exercise - 30-day Reassessments 30 day Reassessments:: Met - Physical Activity Home Exercise Physical Activity - Home Exercise: Safe Exercise, Warm-up, Self-monitoring, Cool-Down, Home Exercise > 30 min Daily, Sitting Time <3 hours/daily - Outcomes & Goals Outcomes/Goals: Demonstrates correct Warm-up/exercise Cool-Down (S3) if = 2.5 METs, Verbalizes symptoms of exercise intolerance by Session 3 (S3), Demonstrate safe equipment use (S3) & follows exercise prescrition (6) - Intervention & Plan Plan/Intervention: Instruct warm-up & cool-down if exercising at > 2 METs, Instruct on symptoms of exercise intolerance & actions to take, Instruct & monitor on saf, Assess intial functional capacity & safety risk - 30-day Reassessments 30 day Reassessments:: Met Nutrition - Final Assessment - Program Goals Nutrition Program Goals: LDL <100 optimal. 100 - 129 Near optimal. 130 - 159 Borderline High. 160 - 189 High. Total Cholesterol <200 desirable. 200 - 239 Borderline High. >/= 240 High. HDL < 40 Low >/=60 High. Triglycerides <150 desirable. <199 optimal. VlDL 5 - 40. HgbA1C <7%. BMI <25 Patient has diagnosis of Hyperlipidemia (ICD E78)?: Yes - Visit Date of Assessment:: 09/11/19 Session #:: 34 - Cholesterol/Lipids Determine presence & major risk factors that modify LDL goal: Hypertension or hypertensive medication, Age men > 45 years; women >/= 55 years Outcomes/Goals: Pt IDs own risk factors & lifestyle modifications by Session 10, Verbalizes symptoms of angina & response by session 3., Pt independently manages Intervention/Plan: Instruct on personal lipid levels & lipid goals/NCEP guidelines, Instruct on cholesterol 30-day Reassessments:: Progressing - Diabetes (Other Core Measures) Diabetes Type: Not Applicable - Weight Mgt (Other Care) Not Applicable: Yes Height: 5 ft 7 in Weight:: 179 lb BMI: 28.0 Diagnosis Overweight/Obesity BMI> 30% ICD-10 E66: No Diagnosis High BMI/Morbid Obesity BMI> 35% ICD-10 Z68: No Outcomes/Goals: Pt sets, maintains & shows weight loss goal & trend during rehab Intervention/Plan: Instruct on ideal BMI & set weight loss goal w/patient 30 day Reassessments:: Progressing - Healthy Eating Habits Will attend diet classes:: Yes Outcomes/Goals:: Consume diet rich in vegs,fruits,whole grain/high fiber,fish,lean meat, Limit sat/trans fats,cholesterol & added salts & sugars 30-day Reassessments:: Progressing - Education Gave educational materials for:: Healthy eating Medical - Final Assessment - Visit Date of Eval: 09/11/19 - Medication Compliance Preventative Medication(s):: Aspirin, Ticagrelor/P2Y12 inhibitor, Statin/lipid, Beta humble H/O mental health issues: depression, anxiety, or addiction?: No Doesn?t believe in the benefits of treatment?: No Believes medications are unnecessary or harmful?: No Has a concern about medication side effects?: No Expresses concern over the cost of medications?: No Outcomes/Goals: Verbalizes medications,desired effect & common side effects @ DC, Pt self-reports following medication regimen, Keeps card in wallet w/medications listed by DC Interventions/plans: Instruct on medication effects & side effects, Review medication list w/patient every two weeks, Instruct importance of taking meds as ordered & assist problem solving 30-day Reassessments:: Progressing - Tobacco Use Tobacco Use: Non-smoker - Hypertension Hypertension Diagnosis:: Hypertension ICD-10 I10 Resting Blood Pressure:: 118/62 [place] [employer] Hypertension Guidelines: [place] [employer] Hypertension Guidelines. Normal BP Less than 120/80. Elevated BP 120/80. Hypertension Stage 1: BP 130-139/80-89. Hypertesnion Stage 2: BP 140 or higher/90 or higher. Hypertension Crisis: BP higher than 180/120 Peak Exercise Blood Pressure:: 154/70 Outcomes/Goals: Able to verbalize/achieve optimal blood pressure <130/80, Incorporates diet changes & exercise for blood pressure control by DC Interventions/plan: Instruct on optimal blood pressure, hypertension & medications, Instruct on effects of sodium, alcohol, stress, exercise &hypertension 30 day Reassessments:: Progressing - Tobacco Cessation Referral Smoking Cessation Referral:: No Individual Education/Counseling:: No Education Schedule Given:: Yes Psychosocial - Final Assessmen - VIsit Date of Eval: 09/11/19 Session #:: 34 Not Applicable: Yes History of previous Mental disease:: No - Target Goals Target Goals: Assess presence or absence of depression. Using a valid screening tool, maximizes coping skills. Positive support system - Psychosocial Test Tool Used:: [employer] / [employer] QOL Cardiac, PHQ-9 Questionnaire phq-9 Severity: Severity. 1-4 Minimal Depression. 5-9 Mild Depression. 10-14 Moderate Depression. 15-19 Moderately Sever Depression. 20-27 Severe Depression. Rule: - Referral to Behavioral Health PS - Interventions: Yes Attend Stress Management Classes, No Referral to Behavioral Health if PHQ-9 score >9:, No Referral to [facility] - , No Referral to Physician if PHQ-9 if score is 5-9: - - Outcomes/Goals: See list Psychosocial Outcomes/Goals:: ID's personal stressors & 2 strategies to manage stress by discharge - Intervention/Plan: See List Interventions/Plan:: Assess stressors,coping strategies & signs of derpression on admission, Instruct/assist pt to develop coping & personal stress Mgt strategies, Instruct patient to recognize signs & symptoms of depression, Instruct patient to recog - 30-day Reassessments: 30 day Reassessments:: Met Patient Health Questionnaire Discharge Assessment 1. Little interest or pleasure in doing things: Not at all 2. Feeling down, depressed, or hopeless: Not at all 3. Trouble falling or staying asleep, or sleeping too much: Not at all 4. Feeling tired or having little energy: Not at all 5. Poor appetite or overeating: Not at all 6. Feeling bad about yourself -- or that you are a failure or have let yourself or your family down: Not at all 7. Trouble concentrating on things, such as reading the newspaper or watching television: Not at all 8. Moving or speaking so slowly that other people could have noticed. Or the opposite - being so fidgety or restless that you have been moving around a lot more than usual: Not at all 9. Thoughts that you would be better off , or of hurting yourself in some way: Not at all Total Score: 0 ADAL-Q SV Test - Statements CAD is a disease of the arteries in the heart: False Examples of risk factors for heart disease: True Angina is chest pain or discomfort: True The benefits of resistance training include: True Eating more meat and dairy products: False Anti-platelet medications such as aspirin are important: True The only effective way to manage stress: True An exercise warm-up slowly increases heart rate: True Prepared, processed foods usually have high sodium: True Depression is common after a heart attack: True The statin medications lower cholesterol: True To control blood pressure, lower the amount of sodium: True If someone gets chest discomfort during walking: False Transfats are partially hydrogenated vegetable oils: True Sleep apnea that is not treated increases the risk: False To control cholesterol, one should become a vegetarian: False Someone knows if he/she is exercising at the right level: True Diabetes cannot be prevented with exercise & health eating: False Stress is a large risk for heart attack: True A diet that can help lower blood pressure is rich in: True - Total Score Total Correct Responses: 19 Self-Efficacy Discharge Assessment We would like to know how confident you are in doing certain activities. Please select your confidence level for:: Select your confidence level for the following using the scale 1-10 where 1 is not at all confident and 10 is totally confident. Your score is the average of all 6 responses. Fatigue: How confident are you that you can keep the fatigue caused by your disease from interfering with the things you want to do? Select Number: 10 Physical Discomfort or Pain: How confident are you that you can keep the physical discomfort or pain of your disease from interfering with the things you want to do? Select Number: 10 Emotional Distress: How confident are you that you can keep the emotional distress caused by your disease from interfering with the things you want to do? Select Number: 10 Other Symptoms or Health Problems: How confident are you that you can keep other symptoms or health problems from interfering with the things you want to do? Select Number: 10 Different Tasks and Activities: How confident are you that you can do the different tasks and activities needed to manage your health condition so as to reduce your need to see a doctor? Select Number: 10 Medication: How confident are you that you can do things other than just taking medication to reduce how much your illness affects your everyday life? Select Number: 10 Total Score:: 10 Nutrition Survey - Nutrition Survey Instructions Scoring Instructions: Scoring is as follows: Yes = 1 points. No = 0 point. Patient score that is >/=12 is considered to be at potential nutritional risk and could benefit from a referral to a registered dietitian. - Nutrition Survey Discharge Have you lost >10 lbs over the past 2 months without trying?: No Are you following a special diet at home for diabetes, low fat, or low salt?: Yes Are you interested in meeting with a dietitian for help understanding your diet?: No Do you eat less than 3 meals a day?: No Do you eat fatty meats (ron, sausage, ribs, etc), fried foods, desserts, large amounts of salad dressings, margarine, butter, or cheese most days?: No Do you have food allergies? [Enter types in comment field]: No Do you eat in restaurants more than 3 times a week?: Yes Do you season food with salt, seasoning salt, or garlic salt?: No Do you used canned, boxed, frozen meals, or soups, seasoning packets?: No Total Score:: 2
[2019-09-11 08:12] VITALS: BP 118/62; BP 154/70; BMI 28.0
== END 2019-10-01 23:59 ==
LOC: CR 14:15
PROVIDERS: PCP Family Medicine; Referring Provider Specialist; Visit Provider Specialist
DX: I25.10 Atherosclerotic heart disease of native coronary artery without angina pectoris (principal); Z95.5 Presence of coronary angioplasty implant and graft
CPT/HCPCS: 93798

== ENCOUNTER → 2022-05-31 | Outpatient (CLI) | payer MEDICARE, SELFPAY ==
[2019-09-11 08:12] VITALS: BMI 28.0
[2022-05-31 08:02] LABS: AST(SGOT) 11 U/L (15-37); Alanine Aminotransfer ALT/SGPT 21 U/L (16-61); Albumin, Serum 3.6 g/dL (3.2-5.0); Alkaline Phosphatase 65 U/L (45-117); Bilirubin, Direct 0.22 mg/dL (0.00-0.30); Cholesterol 184 mg/dL (200); Globulin 3.2 g/dL (2.2-4.2); High Density Lipoprotein 53 mg/dL; Protein, Total 6.8 g/dL (6.4-8.2); Triglycerides 60 mg/dL; Very Low Density Lipoprotein 12 mg/dL (5-40)
== END | disposition home or self-care (01) ==
LOC: LAB 06:41
PROVIDERS: PCP Family Medicine; Referring Provider Internal Medicine Cardiovascular Disease; Visit Provider Internal Medicine Cardiovascular Disease
DX: I25.10 Atherosclerotic heart disease of native coronary artery without angina pectoris (principal); Z95.5 Presence of coronary angioplasty implant and graft; E78.5 Hyperlipidemia, unspecified
CPT/HCPCS: 36415; 80061; 80076

== ENCOUNTER → 2023-02-07 | Outpatient (CLI) | payer MEDICARE, SELFPAY ==
[2019-09-11 08:12] VITALS: BMI 28.0
[2023-02-07 09:41] LABS: AST(SGOT) 13 U/L (15-37); Alanine Aminotransfer ALT/SGPT 17 U/L (16-61); Albumin, Serum 3.6 g/dL (3.2-5.0); Alkaline Phosphatase 64 U/L (45-117); Cholesterol 206 mg/dL (200); Globulin 3.3 g/dL (2.2-4.2); High Density Lipoprotein 55 mg/dL; Protein, Total 6.9 g/dL (6.4-8.2); Triglycerides 64 mg/dL; Very Low Density Lipoprotein 13 mg/dL (5-40)
== END | disposition home or self-care (01) ==
LOC: LAB 08:09
PROVIDERS: PCP Family Medicine; Referring Provider Nurse Practitioner Family; Visit Provider Nurse Practitioner Family
DX: I25.10 Atherosclerotic heart disease of native coronary artery without angina pectoris (principal); E78.5 Hyperlipidemia, unspecified; I10 Essential (primary) hypertension
CPT/HCPCS: 36415; 80061; 80076

== ENCOUNTER → 2023-08-02 | Outpatient (CLI) | payer MEDICARE, SELFPAY ==
[2019-09-11 08:12] VITALS: BMI 28.0
[2023-08-02 13:33] LABS: ALB/GLOB Ratio 1.1 RATIO (0.9-2.4); AST(SGOT) 15 U/L (15-37); Alanine Aminotransfer ALT/SGPT 17 U/L (16-61); Albumin, Serum 3.3 g/dL (3.2-5.0); Alkaline Phosphatase 56 U/L (45-117); Anion Gap 3 (5-15); BUN 18 mg/dL (7-18); BUN/Creat Ratio 17.6 RATIO (10-20); Calcium,Total 8.4 mg/dL (8.5-10.1); Chloride 113 mmol/L (98-107); Cholesterol 157 mg/dL (200); Creatinine, Serum 1.02 mg/dL (0.70-1.30); EST Glomerular Filtration Rate 75 mL/min (>60); Est Glom Filt Rate - Afr Amer 91 mL/min (>60); Glucose 99 mg/dL (74-106); High Density Lipoprotein 52 mg/dL; Potassium 4.2 mmol/L (3.5-5.1); Protein, Total 6.3 g/dL (6.4-8.2); Sodium Level 142 mmol/L (136-145); Triglycerides 51 mg/dL; Very Low Density Lipoprotein 10 mg/dL (5-40)
== END | disposition home or self-care (01) ==
LOC: LAB 10:44
PROVIDERS: PCP Family Medicine; Referring Provider Internal Medicine Cardiovascular Disease; Visit Provider Internal Medicine Cardiovascular Disease
DX: E78.5 Hyperlipidemia, unspecified (principal); I25.10 Atherosclerotic heart disease of native coronary artery without angina pectoris
CPT/HCPCS: 36415; 80053; 80061

== ENCOUNTER → 2023-12-22 | Outpatient (CLI) | payer MEDICARE, SELFPAY ==
[2019-09-11 08:12] VITALS: BMI 28.0
[2023-12-22 09:08] LABS: AST(SGOT) 12 U/L (15-37); Alanine Aminotransfer ALT/SGPT 18 U/L (16-61); Albumin, Serum 3.7 g/dL (3.2-5.0); Alkaline Phosphatase 60 U/L (45-117); Bilirubin, Direct 0.17 mg/dL (0.00-0.30); Cholesterol 164 mg/dL (200); High Density Lipoprotein 65 mg/dL; Protein, Total 6.7 g/dL (6.4-8.2); Triglycerides 127 mg/dL; Very Low Density Lipoprotein 25 mg/dL (5-40)
== END | disposition home or self-care (01) ==
LOC: LAB 08:07
PROVIDERS: PCP Family Medicine; Referring Provider Internal Medicine Cardiovascular Disease; Visit Provider Internal Medicine Cardiovascular Disease
DX: I25.10 Atherosclerotic heart disease of native coronary artery without angina pectoris (principal); E78.5 Hyperlipidemia, unspecified
CPT/HCPCS: 36415; 80061; 80076

== ENCOUNTER → 2024-06-25 | Outpatient (CLI) | payer MEDICARE, SELFPAY ==
[2019-09-11 08:12] VITALS: BMI 28.0
[2024-06-25 12:14] LABS: Hematocrit 36.1 % (40-54); Hemoglobin 12.6 g/dL (13.0-16.5); Mean Corp Hgb Conc 34.9 g/dL (32-36); Mean Corpuscular Hgb 34.7 pg (27.0-32.0); Mean Corpuscular Volume 99.4 fL (80-94); Mean Platelet Vol. 9.5 fl (6.2-12.0); Platelet Count 215 K/mm3 (150-450); RBC Distribution Width CV 11.9 % (11.6-14.6); RBC Distribution Width SD 43.4 fl (35.1-43.9); Red Blood Count 3.63 M/mm3 (4.6-6.2); White Blood Count 3.9 K/mm3 (4.4-11.0)
[2024-06-25 13:00] LABS: ALB/GLOB Ratio 1.6 RATIO (0.9-2.4); AST(SGOT) 18 U/L (<=37); Alanine Aminotransfer ALT/SGPT 14 U/L (<=46); Albumin, Serum 3.9 g/dL (3.4-4.8); Alkaline Phosphatase 56 U/L (40-129); Anion Gap 9 (5-15); BUN 15 mg/dL (4-19); BUN/Creat Ratio 16.7 RATIO (10-20); Calcium,Total 8.5 mg/dL (7.6-11.0); Carbon Dioxide 23.4 mmol/L (21.0-32.0); Chloride 109 mmol/L (98-108); Cholesterol 153 mg/dL (<=200); Creatinine, Serum 0.89 mg/dL (0.70-1.20); EST Glomerular Filtration Rate 87 (>60); Globulin 2.5 g/dL (2.2-4.2); Glucose 91 mg/dL (70-99); High Density Lipoprotein 44 mg/dL; Low Density Lipoprotein Calc. 99 mg/dL; Potassium 3.9 mmol/L (3.3-5.1); Protein, Total 6.3 g/dL (5.9-8.4); Sodium Level 142 mmol/L (133-145); Total Bilirubin 0.48 mg/dL (0.00-1.30); Triglycerides 48 mg/dL; Very Low Density Lipoprotein 10 mg/dL (5-40); cholesterol:hdl ratio screen 3.48
== END | disposition home or self-care (01) ==
LOC: LAB 10:57
PROVIDERS: PCP Family Medicine; Referring Provider Internal Medicine Cardiovascular Disease; Visit Provider Internal Medicine Cardiovascular Disease
DX: I25.10 Atherosclerotic heart disease of native coronary artery without angina pectoris (principal); I48.0 Paroxysmal atrial fibrillation
CPT/HCPCS: 36415; 80053; 80061; 85027

== ENCOUNTER → 2024-08-09 | Outpatient (CLI) | payer MEDICARE, SELFPAY ==
[2019-09-11 08:12] VITALS: BMI 28.0
--- NOTE | 2024-08-09 07:50 | CDU_ITS ---
Reason For Study Reason For Study: Dizziness Rt. Velocities/BP Lt. Velocities/BP Prox CCA 64.4/25.9 cm/sec. Prox CCA 78.7/27.0 cm/sec. Mid CCA 66.6/21.5 cm/sec. Mid CCA 93.0/32.5 cm/sec. Dist CCA 69.9/23.7 cm/sec. Dist CCA 72.1/23.7 cm/sec. Prox ICA 89.7/29.4 cm/sec. Prox ICA 79.8/25.9 cm/sec. Mid ICA 65.8/28.0 cm/sec. Mid ICA 90.6/34.0 cm/sec. Dist ICA 70.5/25.1 cm/sec. Dist ICA 88.4/30.6 cm/sec. Rt. ICA/CCA = 1.3. Lt. ICA/CCA = 1.0. Prox ECA 88.6/18.2 cm/sec. Prox ECA 121.6/28.5 cm/sec. Rt. Vert. 41.7/18.2 cm/sec. Lt. Vert. 51.2/16.0 cm/sec. Right Extracranial There is homogeneous, smooth atherosclerotic plaque noted in the right common carotid artery. There is heterogeneous, irregular atherosclerotic plaque noted in the right internal carotid artery. The distal right internal carotid artery is not well visualized. There is homogeneous, smooth atherosclerotic plaque noted in the right external carotid artery. Antegrade flow is noted in the right vertebral artery. Left Extracranial There is homogeneous, smooth atherosclerotic plaque noted in the left common carotid artery. There is heterogeneous, irregular atherosclerotic plaque noted in the left internal carotid artery. The atherosclerotic plaque causes acoustic shadowing. There is heterogeneous, smooth atherosclerotic plaque noted in the left external carotid artery. Antegrade flow is noted in the left vertebral artery. Procedure Carotid Duplex [id number]. This is a Carotid Duplex examination using B-mode, color flow and specral Doppler. The exam was diagnostic. Exam performed in department. VL/Carotid Duplex Ultrasound Interpretation Summary Mild (<50%) stenosis right extracranial internal carotid. Mild (<50%) stenosis left extracranial internal carotid. Patent and antegrade vertebrals bilaterally. Ordering Physician: Raza Alcaraz Referring Physician: An Fuller Performed By: Ortega Aleman RVT
--- NOTE | 2024-08-09 07:50 | AAAS_ITS ---
Reason For Study Reason For Study: AAA Screening Aorta Measurements Aorta Doppler Measurements Proximal aorta measures2.77 x 2.92cm. in cross-sectional Peak systolic flow velocities within the proximal aorta axis. measure 65.1 cm/sec. Proximal aorta measures2.77cm. in longitudinal axis. Peak systolic flow velocities within the mid aorta measure Mid aorta measures2.64 x 2.57cm. in cross-sectional axis. 77.7 cm/sec. Mid aorta measures2.42cm. in longitudinal axis. Peak systolic flow velocities within the distal aorta Distal aorta measures1.90 x 2.08cm. in cross-sectional axis.measure 74.1 cm/sec. Distal aorta measures1.99cm. in longitudinal axis. Left Iliac Artery Left iliac artery measures 1.04 x 1.07 cm. in the cross-sectional axis. Left iliac artery measures 1.20 cm. in the longitudinal axis. Peak systolic velocity in the left iliac artery measures 65.6 cm/sec. Right Iliac Artery Right iliac artery measures 1.14 x 1.16 cm. in the cross-sectional axis. Right iliac artery measures 1.18 cm. in the longitudinal axis. Peak systolic velocity in the right iliac artery measures 81.9 cm/sec. VL/AAA Screening Interpretation Summary Aorta patent, ectasia to 2.92 cm. Bilateral iliac arteries patent, normal caliber. Ordering Physician: Raza Alcaraz Referring Physician: An Fuller Performed By: Ortega Aleman, RVT
== END | disposition home or self-care (01) ==
LOC: CVS 07:50
PROVIDERS: PCP Family Medicine; Referring Provider Internal Medicine Cardiovascular Disease; Visit Provider Internal Medicine Cardiovascular Disease
DX: R42 Dizziness and giddiness (principal); I10 Essential (primary) hypertension
CPT/HCPCS: 76706; 93880

== ENCOUNTER → 2024-10-29 | Outpatient (CLI) | payer MEDICARE, SELFPAY ==
[2019-09-11 08:12] VITALS: BMI 28.0
[2024-10-29 10:39] LABS: Hematocrit 37.5 % (40-54); Hemoglobin 13.2 g/dL (13.0-16.5); Immature Granulocytes Count 0.010 X10^3/uL (0.0-0.0); Mean Corp Hgb Conc 35.2 g/dL (32-36); Mean Corpuscular Volume 100.0 fL (80-94); Mean Platelet Vol. 10.2 fl (6.2-12.0); NRBC Flagged by Analyzer 0 % (0-5); Platelet Count 187 K/mm3 (150-450); RBC Distribution Width CV 12.3 % (11.6-14.6); RBC Distribution Width SD 44.4 fl (35.1-43.9); Red Blood Count 3.75 M/mm3 (4.6-6.2); White Blood Count 5.3 K/mm3 (4.4-11.0)
[2024-10-29 11:43] LABS: PSA,Total- Diagnostic 2.86 ng/mL (0.00-4.00)
== END | disposition home or self-care (01) ==
LOC: LAB 09:59
PROVIDERS: PCP Family Medicine; Referring Provider Family Medicine; Visit Provider Family Medicine
DX: Z51.81 Encounter for therapeutic drug level monitoring (principal); C61 Malignant neoplasm of prostate
CPT/HCPCS: 36415; 84153; 85025